=== PATIENT | male | born 1950 | race Caucasian/White ===

== ENCOUNTER 2019-05-07 09:07 | Emergency (ER) | payer MEDICARE, OTHER, SELFPAY ==
[2019-05-07 09:07] VITALS: BP 156/96; PULSE 61; RESP 17; TEMP 36.7; O2SAT 94; BMI 35.0
--- NOTE | 2019-05-07 09:23 | CT_ITS ---
STUDY: CT ABDOMEN AND PELVIS WITH CONTRAST REASON FOR EXAM: Male, 68 years old. Left lower quadrant pain x24 hours RADIATION DOSAGE (If Supplied By Facility): CTDIvol = ( 20.33 ) mGy, DLP = ( 1428.91 ) mGycm TECHNIQUE: Transaxial images were obtained from the dome of the diaphragm to the symphysis pubis without oral contrast. 100ML IV Isovue 300 was administered. Sagittal and coronal images were reconstructed. Individualized dose optimization techniques were used for this CT. COMPARISON: None. FINDINGS: There are chronic interstitial fibrotic changes of the lung bases. The visualized portions of the heart are within normal limits. Liver is unremarkable aside from a 1 cm cyst in the left lobe. Normal gallbladder and extrahepatic biliary system. Normal spleen. Normal pancreas. Normal bilateral adrenal glands. Normal right kidney. Left kidney shows hydronephrosis and hydroureter with a minimal amount of perinephric and periureteral inflammatory stranding. Findings due to 2 separate 2 mm stones in the distal left ureter best seen on axial images 112-114. There is a small hiatal hernia. Normal small intestine. Normal colon. There is non-visualization of the appendix. Normal abdominal aorta. Normal inferior vena cava. Normal retroperitoneum. Bladder is incompletely distended. There are prostatic calcifications. Normal abdominal wall. There are diffuse degenerative changes of the visualized lumbar spine, and pelvis. Replaced right hip joint free of complication CT/Abdomen/Pelvis W IV Cont ONLY IMPRESSION: There are 2 separate 2 mm calcifications in the distal left ureter likely responsible for left-sided hydronephrosis and hydroureter with perinephric and periureteral inflammatory stranding. Small hiatal hernia 1 similar left hepatic cyst Prostate calcifications Degenerative bony changes Electronically Signed: Cristóbal Vallejo MD at 10:48 EDT , Service support ,
[2019-05-07 09:32] LABS: Color, Urine Yellow (Yellow); Glucose, Dipstick Normal (Normal); Ketone-Dipstick 5 mg/dl (Negative); Leukocyte Esterase-Dipstick 25 /ul (Negative); Nitrite-Dipstick Negative (Negative); Occult Blood-Urine 250 /ul (Negative); Protein-Dipstick 30 mg/dl (Negative); Urine Bilirubin Dipstick Negative (Negative); Urine Clarity Clear (Clear); Urine Urobilinogen 1 mg/dl (Normal)
[2019-05-07 09:41] LABS: Absolute Lymphocyte Count 1.04 X10^3/uL (0.83-4.51); Absolute Neutrophil Count 7.2 X10^3/uL (2.0-7.7); Basophil# 0.04 X10^3/uL; Basophil% 0.5 % (0-1); Eosinophil# 0.05 X10^3/uL; Eosinophils% 0.6 % (0-5); Hematocrit 46.8 % (40-54); Hemoglobin 15.7 g/dL (13.0-16.5); Lymphocyte # 1.04 X10^3/ul (4.0); Lymphocyte % 11.7 % (19-41); Mean Corp Hgb Conc 33.5 g/dL (32-36); Mean Corpuscular Hgb 29.9 pg (27.0-32.0); Mean Corpuscular Volume 89.1 fL (80-94); Mean Platelet Vol. 11.5 fl (6.2-12.0); Monocyte# 0.55 X10^3/uL; Monocyte% 6.2 % (0-10); NRBC Flagged by Analyzer 0 % (0-5); Neutrophil # 7.18 X10^3/uL (2.7-7.7); Neutrophil % 80.8 % (47-70); Platelet Count 216 K/mm3 (150-450); RBC Distribution Width CV 12.6 % (11.6-14.6); RBC Distribution Width SD 41.2 fl (35.1-43.9); Red Blood Count 5.25 M/mm3 (4.6-6.2); White Blood Count 8.9 K/mm3 (4.4-11.0)
[2019-05-07 09:51] LABS: Anion Gap 8 (5-15); BUN 17 mg/dL (7-18); BUN/Creat Ratio 15.9 RATIO (10-20); Calcium,Total 9.1 mg/dL (8.5-10.1); Chloride 107 mmol/L (98-107); Creatinine, Serum 1.07 mg/dL (0.70-1.30); EST Glomerular Filtration Rate 73 mL/min (>60); Est Glom Filt Rate - Afr Amer 89 mL/min (>60); Estimated Creatinine Clearance 78.96 ml/min; Glucose 110 mg/dL (74-106); Potassium 4.4 mmol/L (3.5-5.1); Sodium Level 140 mmol/L (136-145)
[2019-05-07 09:55] LABS: Red Blood Cells-Urine 25-50 SEEN /hpf (0-5)
[2019-05-07 09:56] LABS: International Normalized Ratio 2.4; Prothrombin Time (Protime)PT. 25.8 SECONDS (11.7-14.9)
[2019-05-07 09:56] LABS: Bacteria 1+ /hpf (None Seen); Mucous, Urine 1+ /hpf (<or=2+); Squamous Epithelial Cells - UA 0-5 SEEN /hpf (0-5); White Blood Cells 0-5 SEEN /hpf (0-5)
--- NOTE | 2019-05-07 10:14 | ED.DCSUM_ITS ---
- ER Visit Summary Date of Service: 05/07/19 Chief Complaint: Left lower quadrant abdominal pain History of Present Illness: The patient is a 68 M who states that last evening he began to experience a low left lower quadrant abdominal pain. He notes urinary frequency and also sensation he needs to have frequent bowel movements. States only small amounts come. He has a history of kidney stones and states that this feels different. He has not had a history of diverticulitis. Has had no rectal bleeding or diarrhea. No fevers. Physical Examination: Afebrile vital signs stable Gen: Well-nourished well-developed Head: Normocephalic atraumatic Eyes: Perrl EOMI ENT: TMs clear no rhinorrhea moist mucous membranes Neck: Supple no lymphadenopathy no JVD nontender CVS: Regular rate rhythm no murmurs normal S1-S2 Respiratory: No distress clear to auscultation bilaterally chest nontender Abdomen: Soft nontender nondistended normal bowel sounds no masses Back: Nontender Extremity: Nontender no edema Skin: Normal color no rash Neuro: alert orientated ?3 CN II-XII intact normal strength sensation Psych: Normal affect normal mood Test Results: Urinalysis shows hematuria. CBC chemistries negative. INR 2.4. CT of the abdomen pelvis demonstrates a 3 mm distal ureteral stone with associated hydronephroureter. Emergency Department Course and Treatment: Toradol for pain with some wish to drive. I will write for Mor[place]arty and Zofran at home. Follow-up with urology if not improving return if worsening or concerns Impression: 1. Acute left distal ureterolithiasis 2. Hydronephroureter This note was generated with [employer] dictation software. It may contain incorrect words, spelling, and punctuation that were not noted in review of the chart prior to signing ED Disposition - Plan for ED Patient: Disposition: Home or Assisted Living Instructions: KIDNEY STONE w/ Colic Prescriptions: Hydrocodone Bitart/Apap 5-325 [Moriarty 5MG-325MG] 1 tab PO Q6H PRN PRN 3 Days #12 tab PRN Reason: Pain Prescription Printed Ondansetron [Zofran Odt] 4 mg PO Q8H PRN PRN #10 tab PRN Reason: Nausea Prescription Printed Referrals: Efrain Baca MD [Primary Care Provider] - As Needed Andry Coreas MD [STAFF PHYSICIAN] - (as needed for urology ) Additional Instructions: Your INR was 2.4 today
[2019-05-07] MEDS: Ketorolac 30 MG/ML Syringe IV (10:50)
[2019-05-07 11:20] VITALS: BP 136/79; PULSE 60; RESP 18; O2SAT 90
== END 2019-05-07 11:20 | disposition home or self-care (01) ==
PROVIDERS: Emergency Provider Emergency Medicine
DX: N13.2 Hydronephrosis with renal and ureteral calculous obstruction (principal); Z87.442 Personal history of urinary calculi; N40.0 Benign prostatic hyperplasia without lower urinary tract symptoms; Z86.718 Personal history of other venous thrombosis and embolism; Z79.01 Long term (current) use of anticoagulants
CPT/HCPCS: 74177; 80048; 81001; 85025; 85610; 96374; 99283; Q9967; A4216

== ENCOUNTER 2019-09-08 11:42 | Inpatient (IN) | payer MEDICARE, OTHER, SELFPAY ==
[2019-09-08] VITALS (10 sets, daily range): BP systolic 113–162; BP diastolic 75–94; PULSE 56–70; RESP 12–18; TEMP 36.4–37.1; O2SAT 95–100; BMI 36.5; BMI 35.9; BMI 36.0
--- NOTE | 2019-09-08 11:53 | EKG12_ITS ---
Test Reason : CP Blood Pressure : / mmHG Vent. Rate : 061 BPM Atrial Rate : 061 BPM P-R Int : 170 ms QRS Dur : 088 ms QT Int : 430 ms P-R-T Axes : 028 -11 004 degrees QTc Int : 432 ms Normal sinus rhythm Normal ECG Confirmed by GASPER QUINTANA MD ([id number]), map editor TIFFANIE MERCER ([id number]) on 09/10/2019 10:57:46 AM Referred By: Confirmed By:GASPER QUINTANA MD
[2019-09-08 12:00] LABS: Basophil# 0.05 X10^3/uL; Basophil% 0.7 % (0-1); Eosinophil# 0.42 X10^3/uL; Eosinophils% 5.9 % (0-5); Hematocrit 46.5 % (40-54); Hemoglobin 15.7 g/dL (13.0-16.5); Lymphocyte % 28.2 % (19-41); Mean Corp Hgb Conc 33.8 g/dL (32-36); Mean Corpuscular Hgb 29.6 pg (27.0-32.0); Mean Corpuscular Volume 87.7 fL (80-94); Mean Platelet Vol. 11.2 fl (6.2-12.0); Monocyte# 0.62 X10^3/uL; Monocyte% 8.8 % (0-10); NRBC Flagged by Analyzer 0 % (0-5); Neutrophil # 3.97 X10^3/uL (2.7-7.7); Neutrophil % 56.1 % (47-70); Platelet Count 231 K/mm3 (150-450); RBC Distribution Width CV 12.3 % (11.6-14.6); RBC Distribution Width SD 39.2 fl (35.1-43.9); White Blood Count 7.1 K/mm3 (4.4-11.0)
--- NOTE | 2019-09-08 12:00 | RAD_ITS ---
STUDY: X-RAY CHEST REASON FOR EXAM: Male, 69 years old. TECHNIQUE: COMPARISON: None. FINDINGS: The heart is not enlarged. The lung mason and costophrenic angles are clear. No pneumothorax or pleural effusion. There is mild tortuosity of the thoracic aorta. The trachea is in the midline. The visualized bony structures are intact. RAD/Chest 1 View (Portable) IMPRESSION: Negative chest for active disease. Electronically Signed: Willian Wright, at 12:20 EST Tel , Service support ,
[2019-09-08] MEDS: fentaNYL 100 MCG/2 ML Ampul 50 MCG IV ×2 (12:01→14:19)
[2019-09-08] MEDS: Aspirin 81 MG TAB.CHEW 324 MG PO (12:01)
[2019-09-08 12:08] LABS: International Normalized Ratio 2.5; Prothrombin Time (Protime)PT. 27.1 SECONDS (11.7-14.9)
[2019-09-08 12:12] LABS: Anion Gap 8 (5-15); BUN 16 mg/dL (7-18); BUN/Creat Ratio 18.1 RATIO (10-20); Calcium,Total 9.1 mg/dL (8.5-10.1); Chloride 107 mmol/L (98-107); Creatinine, Serum 0.88 mg/dL (0.70-1.30); EST Glomerular Filtration Rate 91 mL/min (>60); Est Glom Filt Rate - Afr Amer 110 mL/min (>60); Estimated Creatinine Clearance 94.71 ml/min; Glucose 91 mg/dL (74-106); Sodium Level 140 mmol/L (136-145)
--- NOTE | 2019-09-08 12:34 | CT_ITS ---
STUDY: CTA CHEST REASON FOR EXAM: Male, 69 years old. Chest pain and cough RADIATION DOSAGE (If Supplied By Facility): CTDIvol = ( 12.67 ) mGy, DLP = ( 567.16 ) mGycm TECHNIQUE: The examination was performed with the intravenous administration of IV 100mL Isovue-370 100. Post-processing of the angiographic images was performed, with multiplanar reformation and 3D reconstruction. Individualized dose optimization techniques were used for this CT. COMPARISON: CT abdomen and pelvis 05/07/2019. FINDINGS: Normal enhancement of the main pulmonary artery and right and left pulmonary arteries. Normal enhancement of the bilateral peripheral pulmonary arteries. There is no demonstrated pulmonary embolism. Normal pleura. Normal pulmonary parenchyma. No focal pulmonary consolidation. There is trace bibasilar atelectasis. Stable centrally calcified nodule in the posterior left lower lobe is consistent with benign nodule. There is small amount of mucus along the right trachea. There is trace atherosclerotic calcification of the aortic arch . There is no demonstrated aortic dissection. Normal heart and pericardium. Mild coronary artery calcification. No mediastinal, axillary or bulky hilar adenopathy. Normal visualized trachea and bronchi. Normal chest wall structures. There are degenerative changes of thoracic spine. Normal visualized upper abdomen. CT/CTA Chest W/WO Contrast IMPRESSION: No pulmonary embolism or arterial dissection. No focal pulmonary consolidation. Electronically Signed: Nima Mcintosh, at 14:30 EST Tel , Service support ,
--- NOTE | 2019-09-08 12:49 | ED.VISSUMM ---
- ER Visit Summary Date of Service: 09/08/19 Chief Complaint: Chest pain History of Present Illness: The patient is a 69 M with left-sided chest pain that started 4 days ago while he is at [employer]. It does not radiate. He never had this before. Worse when he is driving, specifically when he moves his arm. Seem to be better with [place], but he is now out. He has a cough and a hoarse voice last night, but no other respiratory symptoms. No other associated symptoms like lightheadedness, sweats, nausea, vomiting. Denies weakness or numbness in his arms. He does have a history of DVT and is therapeutic on Coumadin. Denies any history of aortic disease. Denies any history of heart disease. Denies diabetes, hypertension, hyperlipidemia, and smoking. Physical Examination: Afebrile and vital signs unremarkable. Patient alert and oriented. No acute distress. HEENT exam unremarkable. Heart regular. Lungs clear. Extremities nontender with good pulses. Skin appears normal. Test Results: EKG shows sinus rhythm at a rate of 61. No sign of acute ischemia or infarction pattern. Unchanged since his prior EKG. CBC and BMP normal. INR 2.5 and troponin 0.097. Chest x-ray normal. Emergency Department Course and Treatment: Patient was treated with aspirin and fentanyl while awaiting results. He was placed on the monitor. Work-up was unremarkable except his troponin was indeterminate at 0.097. His INR is therapeutic. After discussion with the patient, he does not normally have this pain. I suspect he could have a failure of his Coumadin therapy. I am also concerned for other etiologies that could cause a new left-sided chest pain including coronary disease. We will check a CTA and will reassess. Pain was a 2 out of 10 after treatment with aspirin and fentanyl. CTA was negative. Patient had recurrent pain and some pain in his left arm. He was treated with additional fentanyl. Repeat troponin is pending. Patient has a heart score of 4. Given his new symptoms and otherwise explain pain, will contact the hospitalist for further care. Treatment Plan: As above Disposition: Admission Impression: 1. Chest pain This note was generated with [employer] software. It may contain incorrect words, spelling, and punctuation that were not noted in review of the chart prior to signing ED Disposition - Plan for ED Patient: Referrals: Efrain Baca MD [Primary Care Provider] -
--- NOTE | 2019-09-08 14:55 | HP.PCM_ITS ---
Problem List (1) Chest pain Status: Acute (2) Deep venous thrombosis of distal lower extremity Status: Chronic Qualifiers: Chronicity: chronic Laterality: bilateral Qualified Code(s): I82.5Z3 - Chronic embolism and thrombosis of unspecified deep veins of distal lower extremity, bilateral History of Present Illness Date of Admission: 09/08/19 Chief Complaint: chest pain The patient is a 69 year old M presents with a four-day history of left-sided chest pain. Chest pain is constant not exacerbated nor alleviated by any par ticular factors. Has been ongoing and presented to the emergency room for evaluation. Patient an EKG that was unremarkable troponin that came back at 0.097. Patient did undergo a CT angiogram of the chest given his history of DVTs which was negative for any pulmonary embolism nor any other acute process. In the emergency room, patient received aspirin, fentanyl. Chest pain is better but still ongoing. Patient is never had chest pain like this before. [] Past Medical History Past Medical History (Chronic Problems): Chronic Problems Deep venous thrombosis of distal lower extremity (Chronic) Medical History: Medical History (Last Updated 09/08/19 @ 15:00 by Phillip Anderson DO) BPH (benign prostatic hyperplasia) N40.0 DVT (deep venous thrombosis) I82.409 Allergies No Known Allergies Allergy (Verified 09/08/19 11:46) Home Medications: Ambulatory Orders Medication Instructions Recorded Warfarin [Coumadin] 5 mg PO SUMOWETHFRSA 06/06/17 Tamsulosin HCl [Flomax] 0.4 mg PO DAILY@1730 #30 capsule 06/25/17 Warfarin [Coumadin ([facility])] 7.5 mg PO TU 05/07/19 Surgical History: Surgical History (Last Updated 09/08/19 @ 15:01 by Phillip Anderson DO) History of right hip replacement Onset Date: 06/23/17 Z96.641 S/P IVC filter Onset Date: 06/11/17 Z95.828 Surgical History: - - Removal of a lipoma in left chest region Smoking Status: Never smoker - *Family History Maternal History Items: - - no CAD Review of Systems Constitutional: Denies: Anorexia, Chills, Fever Eyes: Denies: Blurred vision, Double vision HEENT: Denies: Head Aches, Sinus Congestion, Sinus Drainage Cardiovascular: Reports: Chest Pain. Denies: Edema Respiratory: Denies: Cough, Shortness of breath at rest, Sputum production Gastrointestinal: Denies: Abdominal Pain, Nausea, Vomiting Genitourinary: Denies: Dysuria Musculoskeletal: Denies: Joint Pain, Joint Tenderness Skin: Reports: Dryness Neurological: Denies: Numbness, Tingling, Focal weakness Psychiatric: Denies: Anxiety, Depression Hematologic/ Lymphatic: Reports: Hx of blood clot. Denies: Easy Bruising, Easy Bleeding Comment: All review systems are otherwise negative except for as mentioned above and in HPI. VTE Information - Inpt Only VTE Present on Admission: No VTE Mechan Device Prophylaxis: None VTE Pharm Prophylaxis ordered?: No Reason prophylaxis not ordered:: Procedure Not Indicated Patient Problems: Active and Suspected Problems Chest pain (Acute) - Physical Exam Vitals/I&O's: Vital Signs Temp Pulse Resp BP Pulse Ox 36.4 C L 60 18 135/81 H 99 09/08/19 11:47 09/08/19 14:23 09/08/19 14:23 09/08/19 14:23 09/08/19 14:23 Oxygen Flow Rate (L/min) 2 Oxygen Delivery Method Nasal Cannula Weight: 129.1 kg Body Mass Index (BMI) 36.5 General: Alert, Cooperative, No apparent distress HEENT: Atraumatic, Normocephalic Oral: Moist Mucosa, No Gingival or Mucosal Lesions/ Ulcerations Neck: No Nodes, Trachea Midline Lungs: Clear to auscultation, Normal air movement, No rhonchi, No wheeze, No rales Cardiovascular: Regular rate, Regular Rhythm, Normal S1, Normal S2, No murmurs Abdomen: Bowel Sounds Present, Soft, Non Tender, Non-Distended, No Hepato- splenomegaly Extremities: No edema, No Calf Tenderness Skin: No rashes, No breakdown Musculoskeletal: No Tenderness to Palpation of Joints or Extremities, No Muscle Wasting Neurological: Muscle tone normal, - - No clonus Psych/Mental Status: Normal Affect, Appropriate Laboratory Results 09/08/19 11:45: WBC 7.1, RBC 5.30, Hgb 15.7, Hct 46.5, MCV 87.7, MCH 29.6, MCHC 33.8, RDW Std Deviation 39.2, RDW Coeff of Gregorio 12.3, Plt Count 231, MPV 11.2, Immature Gran % (Auto) 0.300, Neut % (Auto) 56.1, Lymph % (Auto) 28.2, [place] % (Auto) 8.8, Eos % (Auto) 5.9 H, Baso % (Auto) 0.7, Absolute Neuts (auto) 4.0, Absolute Lymphs (auto) 2.00, Nucleated RBC % 0 09/08/19 11:45: PT 27.1 H, INR 2.5 09/08/19 11:45: Sodium 140, Potassium 4.0, Chloride 107, Carbon Dioxide 25.0, Anion Gap 8, BUN 16, Creatinine 0.88, Estim Creat Clear Calc 94.71, Est GFR (MDRD) Af Amer 110, Est GFR (MDRD) Non-Af 91, BUN/Creatinine Ratio 18.1, Glucose 91, Calcium 9.1, Troponin I 0.097 H 09/08/19 14:45: Troponin I Pending EKG reviewed and showed normal sinus rhythm without any acute changes. Chest x-ray personally reviewed and showed no pulmonary edema nor infiltrate. CTA of the chest personally reviewed and showed no pulmonary embolism, no infiltrate, no pulmonary edema. Clinical Impression(s) from Imaging Studies Chest X-Ray 09/08/19 12:00 IMPRESSION: Negative chest for active disease. Electronically Signed: Willian Wright, at 12:20 EST Tel , Service support , Chest CTA 09/08/19 12:34 IMPRESSION: No pulmonary embolism or arterial dissection. No focal pulmonary consolidation. Electronically Signed: Nima Mcintosh, at 14:30 EST Tel , Service support , Assessment/Plan All Active Problems Chest pain (Acute) 1. Chest pain * Atypical but concerning for cardiac given the slight elevated troponin * No pulmonary embolism * Discussed with Dr. Tran, of cardiology. Explained the case and he will evaluate the patient and have the chemistry quality control technician evaluate him to see if there is any other acute issues such as a pericardial effusion. * Patient received aspirin in the emergency room * Patient is already anticoagulated on warfarin with an INR of 2.5 * Further decisions will be per cardiology's evaluation 2. History of DVT * CTA negative for PE * Will hold the warfarin for now depending on what further needs to be done in regards to this patient's case * Monitor INR 3. VTE prophylaxis: Low risk as patient is already anticoagulated. Discussed with the patient's daughter, Dr. Crisostomo. Code Visit OBSV E&M: 02515 Initial observation care L3
--- NOTE | 2019-09-08 15:38 | PCM.CONS.C ---
Problem List (1) Chest pain Status: Acute Reason for Consult Date of Consultation: 09/08/19 Reason for Consultation: Atypical chest pain, indeterminate troponin History of Present Illness: The patient is a 69 year old M, father of Dr. Radha Crisostomo, nondiabetic, lifelong non-smoker, nonhypertensive, unknown cholesterol medications, no previous cardiac history, currently on Coumadin therapy for repetitive lower extremity DVTs. Patient is never had a heart catheterization, TIA, CVA, but does have a positive family history of coronary disease. Patient was in normal health until Friday when he was at [employer] and he developed new onset atypical midsternal chest pain which was nonradiating with no associated shortness of breath, nausea, vomiting, diaphoresis, fevers or chills. The pain was described as dull and heavy, in the mid part of his sternum, rated a 5 out of 10 in severity. It appears that the patient's pain worsened when he was driving a car and turning the steering wheel. Patient had some leftover Stuyvesant from a previous kidney stone, and took this at home with some minimal relief. According to the patient the pain is been constant 05/05 since Friday, with only mild improvement with Stuyvesant. When his symptoms did not improve, at the encouragement of his daughter, he came to the emergency room. An EKG performed showed normal sinus rhythm, incomplete right bundle branch block, no acute changes noted. His initial troponin was 0.09. A expedited bedside echo in the emergency room demonstrated relatively intact LV function, normal RV size and function, no pericardial effusion, final results are pending. A chest x-ray was performed which demonstrated no overt findings. A CTA of the chest was performed which was negative for aortic dissection, pulmonary embolism, or infiltrates. Patient's pain is nonreproducible with palpation over his chest, but appears to be worse when he moves his arm medially over his chest. He has no pleuritic component. He does complain of some mild coughing with mild sputum production, but no fevers, chills or infectious processes.] Past Medical History Allergies/Adverse Reactions: Allergies No Known Allergies Allergy (Verified 09/08/19 11:46) Home Medications: Ambulatory Orders Medication Instructions Recorded Warfarin [Coumadin] 5 mg PO SUMOWETHFRSA 06/06/17 Tamsulosin HCl [Flomax] 0.4 mg PO DAILY@1730 #30 capsule 06/25/17 Warfarin [Coumadin ([facility])] 7.5 mg PO TU 05/07/19 Past Medical History (Chronic Problems): Chronic Problems (Last Updated 09/08/19 @ 15:00 by Phillip Anderson DO) Deep venous thrombosis of distal lower extremity (Chronic) Surgical History: - - Removal of a lipoma in left chest region - *Family History Maternal History Items: - - no CAD Smoking Status: Never smoker Review of Systems - Review of Systems General: Denies: Fever, Night Sweats, Fatigue Cardiovascular: Reports: Chest Discomfort, Chest Discomfort at Rest, Chest Tightness. Denies: Shortness of Breath, Orthopnea, PND, Peripheral Edema, Palpitations, Lightheadedness, Dizziness, Near Syncope, Syncope Respiratory: Denies: Cough, Sputum Production, Hemoptysis Gastrointestinal: Denies: Hematemesis, Hematochezia, Melena Genitourinary: Denies: Dysuria, Hematuria Skin: Denies: Rash Subjectve: Patient resting comfortably, no acute distress. Patient's daughter Dr. Radha Crisostomo at the bedside per Objective: Vital Signs Temp Pulse Resp BP Pulse Ox 97.6 F L 64 16 113/75 99 09/08/19 11:47 09/08/19 15:00 09/08/19 15:00 09/08/19 15:00 09/08/19 15:00 Oxygen Flow Rate (L/min) 2 Oxygen Delivery Method Nasal Cannula Weight: 284 lb 9.868 oz Body Mass Index (BMI) 36.5 General: Awake, Alert, Oriented x 3 HEENT: PERRL, EOMI, Sclera Non Icteric Neck: Supple, Good ROM, No Lymph Node Enlargement Lungs: Clear to auscultation Cardiovascular: Regular Rhythm, Normal S1, Normal S2, No Murmurs, No Rubs, No Gallops Vascular: No Carotid Bruits, Normal Femoral Pulses, Normal Radial Pulses, Normal Dorsalis Pedal Pulse, Normal Posterior Tibial Pulses Abdomen: Bowel Sounds Present, Soft, Non Tender, No HSM, No Organomegaly Extremities: No Cyanosis, No Clubbing, No edema Neurological: No Focal Motor or Sensory Deficit 09/08/19 11:45: WBC 7.1, RBC 5.30, Hgb 15.7, Hct 46.5, MCV 87.7, MCH 29.6, MCHC 33.8, Plt Count 231, MPV 11.2, Immature Gran % (Auto) 0.300, Neut % (Auto) 56.1, Lymph % (Auto) 28.2, [place] % (Auto) 8.8, Eos % (Auto) 5.9 H, Baso % (Auto) 0.7, Absolute Neuts (auto) 4.0, Nucleated RBC % 0 09/08/19 11:45: PT 27.1 H, INR 2.5 09/08/19 11:45: Sodium 140, Potassium 4.0, Chloride 107, Carbon Dioxide 25.0, Anion Gap 8, BUN 16, Creatinine 0.88, Est GFR (MDRD) Af Amer 110, Est GFR (MDRD) Non-Af 91, BUN/Creatinine Ratio 18.1, Glucose 91, Calcium 9.1, Troponin I 0.097 H 09/08/19 14:45: Troponin I 0.108 H Rhythm: EKG: As above ECHO: Pending Stress Test: Cardiac Cath: PCI: CT Surgery: Holter monitor: EPS: PPM: CXR: Chest CT Scan: Assessment/Plan 1. Chest pain: Patient is a 69-year-old non-smoker, nondiabetic, no previous known coronary disease, positive family history of coronary artery disease, currently on Coumadin therapy which is therapeutic for recurrent lower extremity DVTs. Patient presents with new onset constant, dull chest pain since Friday. The patient was doing a copious amount of landscape work in his yard by raking his beds late last week, but had no chest pain until Friday. His EKG shows no acute changes, and his initial troponin 0 0.09. Echocardiogram at the bedside shows relatively intact LV function, final results are pending. No pericardial effusion noted. At this point given the patient's age, risk factors, family history, abnormal troponin, and new onset chest pain despite Coumadin I recommend the patient be admitted to the telemetry floor for rule out myocardial infarction protocol with troponin series x3. In addition I would recommend holding his Coumadin therapy in anticipation that he may require diagnostic coronary angiogram. Recommend treating him with baby aspirin 81 mg p.o. daily for possible acute coronary syndrome. Once we know where his troponins have defined themselves, we will then decide on either direct coronary angiography once his INR is less than 1.6, or stress testing with a treadmill echocardiogram to evaluate for possible ischemia. If the patient will require diagnostic coronary angiogram he will need to be loaded with Plavix 300 mg x 1 followed by 75 mg a day in conjunction with his baby aspirin 81 mg p.o. daily. In addition I would recommend the patient undergo a d-dimer as well as a high-sensitivity CRP to evaluate for possible pericarditis or pleuritis. 2. DVT: The patient is on chronic Coumadin therapy and his INR is therapeutic at 2.5 today. Again recommend holding his Coumadin in anticipation that he may require a diagnostic coronary angiogram. 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 While he is off Coumadin therapy we may want to take the opportunity to obtain a hypercoagulable work-up panel including Antithrombin III, factor V Leiden, protein C, protein S, and lupus anticoagulant factors. 3. Hyperlipidemia: Recommend obtaining a fasting lipid profile as part of his work for coronary atherosclerotic disease. 4. Discussed with the patient's daughter, and agree with admission at this time. Thank you very much for the opportunity to participate in the cardiac care of your patient. Consultation time took place between 4 PM and 4:48 PM. Code Visit Inpatient E&M: 39902 Init Hosp L2
--- NOTE | 2019-09-08 15:46 | ECHOCS_ITS ---
Reason For Study: CP Procedure This was a 2D Doppler, Color Flow transthoracic echocardiogram. The study was technically difficult. Contrast injection was performed. Exam performed portable in ED. Left Ventricle Normal size and thickness. The estimated ejection fraction is 65 %. Stage 1 diastolic dysfunction. No regional wall motion abnormalities noted. Right Ventricle Normal size and thickness. Normal systolic function. Atria The left atrium is mildly enlarged. Normal right atrium. Normal atrial septum. Mitral Valve The mitral valve is structurally normal. No prolapse or stenosis seen. Mild (1+) eccentric mitral valve insufficiency. Tricuspid Valve Normal tricuspid valve. Trivial tricuspid valve insufficiency. Right ventricular systolic pressure estimated to be 32 mmHg. Aortic Valve Normal aortic valve. Trisinus/trileaflet aortic valve. Pulmonic Valve Normal pulmonic valve. Great Vessels Normal aortic root. Normal arch. Normal inferior vena cava. Inferior vena cava collapse with sniff. Pericardium/Pleural No pericardial effusion. Medication Diluted definity 2ml given slow IV push to enhance endocardial definition. MMode/2D Measurements & Calculations LVIDd: 5.3 cm IVSd: 1.3 cm Ao root diam: 4.0 cm LVIDs: 3.1 cm LVPWd: 0.99 cm LA dimension: 4.2 cm FS: 41.2 % LAV(MOD-bp): 76.3 ml LA A4 area: 22.5 cm2 RA A4 area: 17.8 cm2 LAV(MOD-bp) Indexed: 30.7 ml/m2 LAV(MOD-sp2): 86.2 ml LAV(MOD-sp4): 65.3 ml Time Measurements MV dec time: 0.26 sec Doppler Measurements & Calculations MV E max lamin: 66.8 cm/sec Lat Peak E' Lamin: 7.5 cm/sec Med Peak E' Lamin: 7.2 cm/sec MV A max lamin: 77.4 cm/sec E/E' lat: 8.9 E/E' med: 9.2 MV E/A: 0.86 MV V2 max: 80.2 cm/sec MV P1/2t max lamin: 69.2 cm/sec Ao V2 max: 115.6 cm/sec MV max P.6 mmHg MV P1/2t: 129.9 msec Ao max P.3 mmHg MV V2 mean: 43.2 cm/sec MV dec slope: 156.1 cm/sec2 Ao V2 mean: 74.6 cm/sec MV mean P.87 mmHg Ao mean P.6 mmHg MV V2 VTI: 29.7 cm MVA(P1/2t): 1.7 cm2 Ao V2 VTI: 23.1 cm LV V1 max: 112.7 cm/sec PA V2 max: 115.6 cm/sec TR max lamin: 245.0 cm/sec LV V1 max P.1 mmHg TR max P.0 mmHg LV V1 mean P.0 mmHg LV V1 mean: 64.0 cm/sec LV V1 VTI: 22.7 cm Interpretation Summary The estimated ejection fraction is 65 %. Stage 1 diastolic dysfunction. The left atrium is mildly enlarged. Mild (1+) eccentric mitral valve insufficiency. Trivial tricuspid valve insufficiency. Right ventricular systolic pressure estimated to be 32 mmHg. The study was technically difficult. Contrast injection was performed. There is no comparison study available. Ordering Physician: Jimmy Tran Referring Physician: Efrain Baca Performed By: Raz Lino RCS
[2019-09-08 16:45] LABS: CRP, High Sensitivity Cardiac 2.54 mg/L; Cholesterol 236 mg/dL (200); High Density Lipoprotein 49 mg/dL; Triglycerides 311 mg/dL; Very Low Density Lipoprotein 62 mg/dL (5-40)
[2019-09-08] MEDS: Tamsulosin HCl 0.4 MG Capsule PO (17:03)
[2019-09-08] MEDS: Clopidogrel Bisulfate 300 MG Tablet PO (17:03)
[2019-09-08 17:08] LABS: D-Dimer Quantitative (DVT/PE) 0.33 FEU/ug/m (0.27-0.49)
[2019-09-08 17:20] LABS: Erythrocyte Sedimentation Rate 18 mm/hr (0-20)
--- NOTE | 2019-09-08 17:49 | EKG12_ITS ---
Test Reason : ADMISSION Blood Pressure : / mmHG Vent. Rate : 058 BPM Atrial Rate : 058 BPM P-R Int : 172 ms QRS Dur : 096 ms QT Int : 434 ms P-R-T Axes : 029 -08 002 degrees QTc Int : 426 ms Sinus bradycardia with Premature supraventricular complexes Otherwise normal ECG When compared with ECG of 08-SEP-2019 12:00, MANUAL COMPARISON REQUIRED, DATA IS UNCONFIRMED Confirmed by LILIAN KHOURY, GASPER ([id number]), graphic editor TIFFANIE MERCER ([id number]) on 09/13/2019 12:03:02 PM Referred By: SHANTI Confirmed By:GASPER QUINTANA MD
[2019-09-08] MEDS: oxyCODONE 5 MG Tablet PO (23:07)
[2019-09-09] VITALS (9 sets, daily range): BP systolic 117–132; BP diastolic 69–75; PULSE 52–63; RESP 16; TEMP 36.7–37.2; O2SAT 94–97
[2019-09-09 06:22] LABS: International Normalized Ratio 2.2; Prothrombin Time (Protime)PT. 24.8 SECONDS (11.7-14.9)
[2019-09-09 06:50] LABS: Cholesterol 220 mg/dL (200); High Density Lipoprotein 51 mg/dL; Triglycerides 164 mg/dL; Very Low Density Lipoprotein 33 mg/dL (5-40)
--- NOTE | 2019-09-09 08:37 | PN.CARD_ITS ---
Subjectve: Patient seen and evaluated. Appears to be doing better this morning. Only occasional mild chest pressure Objective: Vital Signs Temp Pulse Resp BP Pulse Ox 98.9 F 60 16 126/71 H 97 09/09/19 03:50 09/09/19 07:01 09/09/19 03:50 09/09/19 03:50 09/09/19 03:50 Oxygen Flow Rate (L/min) 2 Oxygen Delivery Method Room Air Weight: 280 lb 3.2 oz Body Mass Index (BMI) 35.9 Intake and Output for Last 24 Hours 09/07/19 09/08/19 09/09/19 23:59 23:59 23:59 Intake Total 490 / 490 300 / 300 Balance 490 / 490 300 / 300 General: Awake, Alert, Oriented x 3 HEENT: PERRL, EOMI, Sclera Non Icteric Neck: Supple, Good ROM, No Lymph Node Enlargement Lungs: Clear to auscultation Cardiovascular: Regular Rhythm, Normal S1, Normal S2, No Murmurs, No Rubs, No Gallops Vascular: No Carotid Bruits, Normal Femoral Pulses, Normal Radial Pulses, Normal Dorsalis Pedal Pulse, Normal Posterior Tibial Pulses Abdomen: Bowel Sounds Present, Soft, Non Tender, No HSM, No Organomegaly Extremities: No Cyanosis, No Clubbing, No edema Musculoskeletal: No Erythema Skin: No Rashes Lymphatic: No Lymph Node Enlargement Neurological: No Focal Motor or Sensory Deficit Psych/Mental Status: Appropriate 09/08/19 11:45: WBC 7.1, RBC 5.30, Hgb 15.7, Hct 46.5, MCV 87.7, MCH 29.6, MCHC 33.8, Plt Count 231, MPV 11.2, Immature Gran % (Auto) 0.300, Neut % (Auto) 56.1, Lymph % (Auto) 28.2, [place] % (Auto) 8.8, Eos % (Auto) 5.9 H, Baso % (Auto) 0.7, Absolute Neuts (auto) 4.0, Nucleated RBC % 0 09/08/19 11:45: PT 27.1 H, INR 2.5 09/08/19 11:45: Sodium 140, Potassium 4.0, Chloride 107, Carbon Dioxide 25.0, Anion Gap 8, BUN 16, Creatinine 0.88, Est GFR (MDRD) Af Amer 110, Est GFR (MDRD) Non-Af 91, BUN/Creatinine Ratio 18.1, Glucose 91, Calcium 9.1, Troponin I 0.097 H 09/08/19 11:45: D-Dimer Quant (PE/DVT) 0.33 09/08/19 11:45: Triglycerides 311 H, Cholesterol 236 H, LDL Cholesterol 125, VLDL Cholesterol 62 H, HDL Cholesterol 49 09/08/19 14:45: Troponin I 0.108 H 09/08/19 18:10: Troponin I 0.102 H 09/09/19 05:50: PT 24.8 H, INR 2.2 09/09/19 05:50: Triglycerides 164, Cholesterol 220 H, LDL Cholesterol 136 H, VLDL Cholesterol 33, HDL Cholesterol 51 Rhythm: EKG: ECHO: Stress Test: Cardiac Cath: PCI: CT Surgery: Holter monitor: EPS: PPM: CXR: Chest CT Scan: Medical Necessity - Tobacco Use Smoking Status: Never smoker Tobacco Use: Non-smoker Assessment/Plan 1. Chest pain: Patient presents with chest pain and features suggestive of angina. His troponins are minimally abnormal. He has no EKG changes. Recommendation at this time will be to proceed with a cardiac catheterization when his INR is therapeutic. Risk benefits and alternatives been explained to him he understands and agrees to proceed. * Will be tentatively scheduled for Friday 2. DVT: The patient is on chronic Coumadin therapy and his INR is therapeutic at 2.5 today. Again recommend holding his Coumadin in anticipation that he may require a diagnostic coronary angiogram. 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 While he is off Coumadin therapy we may want to take the opportunity to obtain a hypercoagulable work-up panel including Antithrombin III, factor V Leiden, protein C, protein S, and lupus anticoagulant factors. 3. Hyperlipidemia: Would recommend starting him on high intensity statin. Thank you for allowing me to participate in the care of your patient. Please don't hesitate to call if any issues arise
[2019-09-09] MEDS: Clopidogrel Bisulfate 75 MG Tablet PO (09:20)
[2019-09-09] MEDS: Aspirin E.C. 81 MG Tablet PO (09:20)
[2019-09-09] MEDS: 0.9% Saline Lock 10 ML Syringe IV (09:20)
[2019-09-09] MEDS: Isosorbide Mononitrate 30 MG Tablet PO (09:20)
--- NOTE | 2019-09-09 12:12 | PCM.PROGNOTE ---
Patient Problems: Active and Suspected Problems (Last Updated 09/08/19 @ 15:00 by Phillip Anderson DO) Chest pain (Acute) Subjective: The patient is a 69-year-old male with a past medical history of DVT, chronic anticoagulation with warfarin and BPH who presented to the emergency department at [facility] on 09/08/2019 complaining of a 4-day history of left chest pain. CTA was negative for pulmonary embolism. EKG showed no ST segment elevation. The initial troponin was elevated at 0.097. He was given aspirin in the emergency department and admitted to a monitored bed on PCU. Warfarin was held suspecting he may need a cardiac catheterization. He was seen by Dr. Patterson on 09/09/2019 and will tentatively be scheduled for cardiac catheterization on 09/10/2019. He was loaded with Plavix on 09/08/2019 and is currently receiving 75 mg p.o. daily. All events of the past 24 hours of been reviewed. Afebrile Vital signs stable He is maintaining appropriate oxygen saturation on room air. All lab was personally reviewed. Coumadin is on hold and his INR today is 2.2. ESR was 18. Troponin peaked at 0.108 and then started to decline. Fasting lipid profile shows triglycerides of 164, total cholesterol of 220, LDL of 136 and an HDL of 51. Per Dr. Patterson's consult today he recommends high intensity statin. He has been prescribed atorvastatin [address] Patterson. Echocardiogram showed a ejection fraction of 65% with stage I diastolic dysfunction. The left atrium is mildly enlarged and he has +1 eccentric mitral valve insufficiency and trivial TR. The right ventricular systolic pressure was estimated to be 32. He is still having some chest discomfort....it is not associated with exertion. It increases if he bends forward. Denies shortness of breath, palpitations. Telemetry shows normal sinus rhythm with occasional PAC and no ventricular ectopy. - Physical Exam Vitals/I&O's: Vital Signs Temp Pulse Resp BP Pulse Ox 98.0 F 63 16 132/75 H 94 09/09/19 09:15 09/09/19 09:15 09/09/19 09:15 09/09/19 09:15 09/09/19 09:15 Oxygen Flow Rate (L/min) 2 Oxygen Delivery Method Room Air Weight: 280 lb 3.2 oz Body Mass Index (BMI) 35.9 Intake and Output for Last 24 Hours 09/07/19 09/08/19 09/09/19 23:59 23:59 23:59 Intake Total 490 / 490 660 / 660 Balance 490 / 490 660 / 660 General: Alert, Oriented x3, Cooperative, No apparent distress, Well developed, Well nourished HEENT: Atraumatic, PERRLA, EOMI, Normocephalic Oral: Moist Mucosa Neck: Supple, No JVD, Negative Carotid Bruits, Trachea Midline Lungs: Clear to auscultation Cardiovascular: Regular rate, Regular Rhythm, Normal S1, Normal S2, No murmurs, No rub noted, No Gallop Abdomen: Bowel Sounds Present, Soft, Non Tender, Non-Distended, Obese Extremities: No clubbing, No cyanosis, No edema, No Calf Tenderness, Peripheral Pulses Normal Neurological: Cranial nerves II-XII grossly intact, Neuro grossly intact Psych/Mental Status: Normal Affect, Appropriate Laboratory Results 09/08/19 11:45: Sodium 140, Potassium 4.0, Chloride 107, Carbon Dioxide 25.0, Anion Gap 8, BUN 16, Creatinine 0.88, Estim Creat Clear Calc 94.71, Est GFR (MDRD) Af Amer 110, Est GFR (MDRD) Non-Af 91, BUN/Creatinine Ratio 18.1, Glucose 91, Calcium 9.1, Troponin I 0.097 H 09/08/19 11:45: D-Dimer Quant (PE/DVT) 0.33 09/08/19 11:45: C-React Prot High Sens 2.54, Triglycerides 311 H, Cholesterol 236 H, LDL Cholesterol 125, VLDL Cholesterol 62 H, HDL Cholesterol 49 09/08/19 11:45: ESR 18 09/08/19 14:45: Troponin I 0.108 H 09/08/19 18:10: Troponin I 0.102 H 09/09/19 05:50: PT 24.8 H, INR 2.2 09/09/19 05:50: Triglycerides 164, Cholesterol 220 H, LDL Cholesterol 136 H, VLDL Cholesterol 33, HDL Cholesterol 51 Current Medications Acetaminophen (Tylenol) 650 mg PO Q6H PRN PRN PRN Reason: Pain Score 1-3/Temp > 100.7 F Aspirin (Ecotrin) 81 mg PO DAILY@0800 ADAL[facility]O Last Admin: 09/09/19 09:20 Dose: 81 mg Documented by: Atorvastatin Calcium (Lipitor) 40 mg PO QHS [facility] Clopidogrel Bisulfate (Plavix) 75 mg PO DAILY [facility] Last Admin: 09/09/19 09:20 Dose: 75 mg Documented by: Sodium Chloride () 1,000 mls @ 15 mls/hr IV .Q48H [facility] Isosorbide Mononitrate (Imdur) 30 mg PO DAILY [facility] Last Admin: 09/09/19 09:20 Dose: 30 mg Documented by: Melatonin (Melatonin) 3 mg PO QHS PRN PRN PRN Reason: INSOMNIA Ondansetron HCl (Zofran) 4 mg IV Q8H PRN PRN PRN Reason: NAUSEA/VOMITING Oxycodone HCl (Oxyir) 5 mg PO Q4H PRN PRN PRN Reason: Pain Score 4-5/10 Last Admin: 09/08/19 23:07 Dose: 5 mg Documented by: Oxycodone HCl (Oxyir) 10 mg PO Q4H PRN PRN PRN Reason: Pain Score 6-10/10 Sodium Chloride () 10 - 40 ml IV UD PRN PRN Reason: SALINE FLUSH Last Admin: 09/09/19 09:20 Dose: 10 ml Documented by: Tamsulosin HCl (Flomax) 0.4 mg PO DAILY@1730 [facility] Last Admin: 09/08/19 17:03 Dose: 0.4 mg Documented by: Medical Necessity - Tobacco Use Smoking Status: Never smoker Tobacco Use: Non-smoker Assessment/Plan All Active Problems (Last Updated 09/08/19 @ 15:00 by Phillip Anderson DO) Chest pain (Acute) Impressions 1. Atypical chest pain with mildly elevated troponin in a 69-year-old male with a positive family history of coronary artery disease, and dyslipidemia. Scheduled for cardiac catheterization on 09/10/2019. Has been loaded with Plavix 300 mg and started on 75 mg p.o. daily. Also on aspirin 81 mg p.o. daily. He has been started on a medium intensity statin, Lipitor 40 mg p.o. nightly, and a nitrate by Dr. Patterson. 2. History of DVT and pulmonary embolus on chronic anticoagulation with warfarin. INR is still within the therapeutic window which would invalidate hypercoagulable work-up. Will need warfarin at discharge. 3. BPH - continue tamsulosin Code Visit Inpatient E&M: 77833 Subs Hosp L1
[2019-09-09] MEDS: Acetaminophen 325 MG Tablet 650 MG PO (15:10)
[2019-09-09] MEDS: Tamsulosin HCl 0.4 MG Capsule PO (17:39)
[2019-09-09] MEDS: oxyCODONE 5 MG Tablet PO (20:22)
[2019-09-09] MEDS: Zolpidem Tartrate 5 MG Tablet PO (21:59)
[2019-09-09] MEDS: Atorvastatin Calcium 40 MG Tablet PO (22:00)
[2019-09-09] MEDS: Phytonadione (Vit K1) 5 MG TABLET 2.5 MG PO (22:00)
[2019-09-10] VITALS (15 sets, daily range): BP systolic 108–155; BP diastolic 61–84; PULSE 52–99; RESP 14–18; TEMP 36.7–36.9; O2SAT 93–99
[2019-09-10 05:14] LABS: International Normalized Ratio 1.7; Prothrombin Time (Protime)PT. 19.6 SECONDS (11.7-14.9)
--- NOTE | 2019-09-10 05:14 | EKG12_ITS ---
Test Reason : AM EKG Blood Pressure : / mmHG Vent. Rate : 057 BPM Atrial Rate : 057 BPM P-R Int : 176 ms QRS Dur : 094 ms QT Int : 432 ms P-R-T Axes : 016 -06 -03 degrees QTc Int : 420 ms Sinus bradycardia with Premature atrial complexes Otherwise normal ECG When compared with ECG of 08-SEP-2019 15:52, MANUAL COMPARISON REQUIRED, DATA IS UNCONFIRMED Confirmed by LILIAN KHOURY, GASPER ([id number]), editor news TIFFANIE MERCER ([id number]) on 09/13/2019 12:01:37 PM Referred By: SHANTI Confirmed By:GASPER QUINTANA MD
[2019-09-10] MEDS: Aspirin E.C. 81 MG Tablet PO (05:56)
[2019-09-10] MEDS: Clopidogrel Bisulfate 75 MG Tablet PO (05:56)
[2019-09-10] MEDS: Isosorbide Mononitrate 30 MG Tablet PO (05:56)
[2019-09-10] MEDS: 0.9% Normal Saline 1,000 ML 15 ML IV (06:43)
--- NOTE | 2019-09-10 07:30 | NURSING ---
Report called to CARLEE Lopez in [facility]
--- NOTE | 2019-09-10 08:21 | CL.D_ITS ---
Patient Name: ADELFO DENG Study Date: 09/10/2019 Performing: Jimmy Tran MD Ht: 74.01 inches 188 cm : 1950 Wt: 279.99 lbs 127 kg Age: 69 Gender: male BSA: 2.51 PROCEDURE(S) PERFORMED DP45-ZWV/COR/LV CLINICAL PROFILE AND INDICATIONS Patient presents with NSTEMI for urgent cardiac cath Indications: New Onset Angina <= 2 months, Worsening Angina, Suspected CAD Heart Failure: None Stress/Imaging Stress/Image Study Performed: No Angina Classification Anginal Classification w/in 2 Weeks: CCS IV CAD Presentations: Symptom unlikely to be ischemic. Non-STEMI. Symptom onset Date/Time: 9 Time Not Available Comorbidities/Risk Factors: Hypertension Dyslipidemia CONCLUSIONS Non obstructive coronary arteries Perserved Left Ventricular systolic function with normal EDP RECOMMENDATIONS Management as per referring Software Security Architect D/c plavix, restart coumadin, hypercoagulable w/u. Manual sheath removal. Dr. Judd notified of results and plan. F/u with Dr Tran DESCRIPTION OF PROCEDURE The patient arrived to the procedure lab. The risks and benefits of the procedure as well as a full d escription of our services here and current unavailability of surgical backup were fully explained to the patient and/or their significant other prior to the catheterization. The Timeout was completed, verifying the correct patient and procedure. The patient's procedural site was prepped and draped in the usual fashion. Local anesthetic was given subcutaneously to right groin region with Lidocaine 2%. Using a modified Seldinger technique, arterial access was obtained via the right femoral artery, a 4 Fr sheath was inserted Left Coronary Artery selective angiography was performed in multiple views us ing a 4 Fr. JL5 catheter. Right Coronary Artery selective angiography was then performed in multiple views using a 4 Fr. 3DRC catheter. Left Ventriculography was performed in IRVIN projection using a 4 Fr . Pigtail catheter. LV to AO pullback pressures were then recorded. CORONARY ANGIOGRAPHY DOMINANCE: Left Dominant LEFT HEART ASSESSMENT Left Ventricular Ejection Fraction: by LV Gram 60 % Normal LV wall motion Normal Left Ventricular systolic function LVEDP: 10 mmHg Normal Left Ventricular End Diastolic Pressure LEFT MAIN: Angiographically normal LEFT ANTERIOR DESCENDING ARTERY: MID LAD: Non-obstructive CIRCUMFLEX ARTERY: PROX CIRC: Mild luminal irregularities less than 30% RAMUS: Angiographically normal RIGHT CORONARY ARTERY: Angiographically normal COMPLICATIONS No Complications PROCEDURE MEDICATIONS Oxygen: 2 L/min via nasal cannula SUMMARY OF HEMODYNAMIC DATA Time AIR REST ECG 07:42:13 AO 108/57 (76) SA 07:59:39 LV 109/-15, 11 08:05:11 LV 103/-13, 10 08:05:18 LVp 116/-17, 5 08:05:31 AOp 108/54 (73) 08:05:36 Signed By Jimmy Tran MD On 09/10/2019 08:20:56 Jimmy Tran MD
--- NOTE | 2019-09-10 11:48 | CASEMGMT ---
CARLEE SANCHEZ assessment: Face to Face with patient for initial transition planning/care coordination assessment. CARLEE SANCHEZ introduced self and role at [facility], pt voices understanding and consents to assessment at this time. Pt is sitting up in bed in no distress at this time. Pt is A/Ox4 at this time and answers all questions appropriately at this time. Care providers, pharmacy, and demographics verified at this time. PCP: [facility] Specialists: Pt states no specialists. Preferred Pharmacy: [facility] Insurance: [employer] A/B, [employer] Prescription Benefit: [employer] Living Will/HPOA: Pt states does not have LW/HPOA and declines info at this time. LNOK: Radha Solis, daughter Living Arrangements: Pt states lives alone in home and states no concerns at home at this time. Pt is independent with ADL's. Transportation: Pt states drives self and states no transportation concerns at this time. DME/HHC: Pt states no current DME or need for any at this time. Pt states no hx of HHC or SNF in the past. Pt states no concerns with going home at time of discharge. Pt is retired. Pt states does not smoke or drink ETOH. Pt states no further concerns/needs at this time. CM to follow for any further discharge planning/needs. Advised pt to ask for CM if any further questions/concerns/needs arise, voices understanding. Pt Goal: Home Plan: [place] CARLEE SANCHEZ
--- NOTE | 2019-09-10 12:49 | NURSING ---
Bedrest post cath complete. R groin site c/d/i. Patient ambulated halls without issue.
--- NOTE | 2019-09-10 13:21 | PCM.DC ---
- Discharge Diagnoses Current Active Problems: Current Active and Chronic Problems (Last Updated 09/08/19 @ 15:00 by Phillip Anderson DO) Chest pain (Acute) You will use the following diet at home:: Cardiac Your food should be the consistency of: Regular Your liquids should be the consistency of: Regular/Thin Discharge Activity: Return to Normal Activity Weight Bearing Status: Weight bearing as tolerated Call your doctor if you observe: Shortness of breath, Dizziness, Fainting spells, Swelling in the ankles, Chest pain Instructions: Warning Signs of a Heart Attack, Taking Long-Acting Nitroglycerin, What Is Angina? Allergies/Adverse Reactions: Allergies No Known Allergies Allergy (Verified 09/08/19 11:46) Medications to take at Discharge Warfarin [Coumadin] 5 mg PO SUMOWETHFRSA 06/06/17 Tamsulosin HCl [Flomax] 0.4 mg PO DAILY@1730 #30 capsule 06/25/17 Warfarin [Coumadin] 7.5 mg PO TU 05/07/19 Aspirin E.C. [Ecotrin] 81 mg PO DAILY@0800 #30 tab 09/10/19 Atorvastatin Calcium [Lipitor] 40 mg PO QHS #30 tab 09/10/19 Isosorbide Mononitrate [Imdur] 30 mg PO DAILY #30 tab 09/10/19 The following prescriptions were given: Aspirin E.C. [Ecotrin] 81 mg PO DAILY@0800 #30 tab Transmission Status: Received by [facility] [employer] Isosorbide Mononitrate [Imdur] 30 mg PO DAILY #30 tab Transmission Status: Received by [employer]) Atorvastatin Calcium [Lipitor] 40 mg PO QHS #30 tab Transmission Status: Received by [facility] Primary Care Physician: Efrain Baca MD [Primary Care Provider] - Please follow up with your Primary Care Physician in: one week Test Results: Test results from this visit will be discussed in further detail at your follow-up appointment, if applicable. Please Follow Up With: Jimmy Tran MD When: 2-3 weeks Proposed Discharge Date: 09/10/19
--- NOTE | 2019-09-10 13:22 | PCM.DC.SUM ---
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 Electronically Signed: Willian Wright, at 12:20 EST Tel , Service support , Chest CTA 09/08/19 12:34 IMPRESSION: No pulmonary embolism or arterial dissection. No focal pulmonary consolidation. Electronically Signed: Nima Mcintosh, at 14:30 EST Tel , Service support , cardiology- Dr Tran Operations: None Procedures: 2-D Echocardiogram, Cardiac catheterization Summary of Care Provided: The patient is a 69 year old M with a past medical history as listed. He was admitted through the ED on 09/08/2019 with a 4-day history of left-sided chest pain which was constant and had no aggravating or relieving factors. He said is coming to the ED where EKG showed no acute ST changes. Initial troponin was 0.097. CT angiogram done was negative for any PE. He was admitted to manage for chest pain rule out ACS. Troponin trended up slightly to a peak of 0.108 and came down to 0.102. Chest x-ray showed no acute cardiopulmonary process, and EKG showed no acute ST changes. He was admitted and managed for chest pain to rule out ACS. INR was 2.5 on admission. Cardiology was consulted. He was started on high intensity statin. 2D echo done showed EF of 65% with stage I diastolic dysfunction and moderately enlarged left atrium. RVSP was estimated to be 32 mmHg. He had cardiac cath on 09/10/2019 which showed nonobstructive coronary arteries and preserved left ventricular systolic function. Per cardiology, plan was to discontinue Plavix and restart Coumadin and patient would benefit from a hypercoagulable work-up on outpatient basis. He was also continued on his aspirin and high intensity statin as well as Imdur. He is to follow-up with his primary care doctor and with cardiology. Patient seen and examined prior to discharge. He had just come back from cath and had no problems and felt well. Review of systems otherwise negative. Labs and vitals reviewed. Home medications reviewed and reconciled. o/e: Vital Signs Height 6 ft 2 in Weight: 280 lb 3.2 oz Weight in Pounds 280.2 lbs Pulse Ox 94 Temperature 98.0 F Pulse Rate 55 Respiratory Rate 16 Blood Pressure 118/69 Blood Pressure Position Semi-Fowlers [] General: Alert, Cooperative, No apparent distress HEENT: Atraumatic, Normocephalic Oral: Moist Mucosa, No Gingival or Mucosal Lesions/ Ulcerations Neck: No Nodes, Trachea Midline Lungs: Clear to auscultation, Normal air movement, No rhonchi, No wheeze, No rales Cardiovascular: Regular rate, Regular Rhythm, Normal S1, Normal S2, No murmurs Abdomen: Bowel Sounds Present, Soft, Non Tender, Non-Distended, No Hepato-splenomegaly Extremities: No edema, No Calf Tenderness Skin: No rashes, No breakdown Musculoskeletal: No Tenderness to Palpation of Joints or Extremities, No Muscle Wasting Neurological: Muscle tone normal, Psych/Mental Status: Normal Affect, Appropriate Plan as above. Patient Problems: Active and Suspected Problems (Last Updated 09/08/19 @ 15:00 by Phillip Anderson DO) Chest pain (Acute) - Physical Exam Vitals/I&O's: Vital Signs Temp Pulse Resp BP Pulse Ox 98.0 F 55 L 16 118/69 94 09/10/19 10:45 09/10/19 12:45 09/10/19 12:45 09/10/19 12:45 09/10/19 12:45 Oxygen Flow Rate (L/min) 2 Oxygen Delivery Method Room Air Weight: 280 lb 3.2 oz Body Mass Index (BMI) 35.9 Intake and Output for Last 24 Hours 09/08/19 09/09/19 09/10/19 23:59 23:59 23:59 Intake Total 490 / 490 2039 240 / 240 Balance 490 / 490 2039 240 / 240 Laboratory Results 09/10/19 04:55: PT 19.6 H, INR 1.7 09/10/19 08:12: PT Ratio Pending, Thrombin Time Pending, Thrombin Time Mix Pending, Lupus Anticoag aPTT Pending, Protein C Antigen Pending, Free Protein S Pending, Total Protein S Pending, Func Antithrombin III Pending, Factor V Leiden Mutat Pending 09/10/19 08:12: Antithrombin III Ag Pending, Func Antithrombin III Pending, Factor V Leiden Mutat Cancelled, Factor V Leiden Comment Cancelled 09/10/19 08:12: PT Diluted Cancelled, PT Ratio Cancelled, PTT Patient Post-Incubat Cancelled, Thrombin Time Cancelled, Thrombin Time Mix Cancelled, Lupus Anticoag aPTT Cancelled, LA PTT Mix/Correction Cancelled, Hexagonal Phospholipid Cancelled, APC Resistance Pending, Functional Protein S Pending, Free Protein S Pending, Total Protein S Pending Current Medications Acetaminophen (Tylenol) 650 mg PO Q6H PRN PRN PRN Reason: Pain Score 1-3/Temp > 100.7 F Last Admin: 09/09/19 15:10 Dose: 650 mg Documented by: Aspirin (Ecotrin) 81 mg PO DAILY@0800 [facility] Last Admin: 09/10/19 05:56 Dose: 81 mg Documented by: Atorvastatin Calcium (Lipitor) 40 mg PO QHS [facility] Last Admin: 09/09/19 22:00 Dose: 40 mg Documented by: Heparin Sodium (Beef Lung) (Heparin 500 Unit/5 Ml (100/Ml)) 500 unit IV UD PRN PRN Reason: HEPARIN FLUSH Sodium Chloride () 1,000 mls @ 15 mls/hr IV .Q48H [facility] Last Infusion: 09/10/19 06:43 Dose: 0 mls/hr Documented by: Isosorbide Mononitrate (Imdur) 30 mg PO DAILY [facility] Last Admin: 09/10/19 05:56 Dose: 30 mg Documented by: Labetalol HCl (Trandate) 5 mg IV X1 PRN PRN Reason: SBP > 160 prior to sheath pull Stop: 09/12/19 08:10 Melatonin (Melatonin) 3 mg PO QHS PRN PRN PRN Reason: INSOMNIA Ondansetron HCl (Zofran) 4 mg IV Q8H PRN PRN PRN Reason: NAUSEA/VOMITING Oxycodone HCl (Oxyir) 5 mg PO Q4H PRN PRN PRN Reason: Pain Score 4-5/10 Last Admin: 09/09/19 20:22 Dose: 5 mg Documented by: Oxycodone HCl (Oxyir) 10 mg PO Q4H PRN PRN PRN Reason: Pain Score 6-10/10 Sodium Chloride () 10 - 40 ml IV UD PRN PRN Reason: SALINE FLUSH Last Admin: 09/09/19 09:20 Dose: 10 ml Documented by: Tamsulosin HCl (Flomax) 0.4 mg PO DAILY@1730 [facility] Last Admin: 09/09/19 17:39 Dose: 0.4 mg Documented by: Discharge Diet: Low fat/ Low Cholesterol Discharge Activity: Return to Normal Activity Weight Bearing Status: Weight bearing as tolerated Call your doctor if you observe: Shortness of breath, Dizziness, Fainting spells, Swelling in the ankles, Chest pain Home Medications: Medications to take at Discharge Warfarin [Coumadin] 5 mg PO SUMOWETHFRSA 06/06/17 Tamsulosin HCl [Flomax] 0.4 mg PO DAILY@1730 #30 capsule 06/25/17 Warfarin [Coumadin] 7.5 mg PO TU 05/07/19 Aspirin E.C. [Ecotrin] 81 mg PO DAILY@0800 #30 tab 09/10/19 Atorvastatin Calcium [Lipitor] 40 mg PO QHS #30 tab 09/10/19 Isosorbide Mononitrate [Imdur] 30 mg PO DAILY #30 tab 09/10/19 Following Prescrptions Were Given to Patient: Aspirin E.C. [Ecotrin] 81 mg PO DAILY@0800 #30 tab Transmission Status: Received by [employer] Isosorbide Mononitrate [Imdur] 30 mg PO DAILY #30 tab Transmission Status: Received by [employer] Atorvastatin Calcium [Lipitor] 40 mg PO QHS #30 tab Transmission Status: Received by [employer] Primary Care Physician: Efrain Baca MD [Primary Care Provider] - Please follow up with your Primary Care Physician in: one week Please Follow Up With: Jimmy Tran MD When: 2-3 weeks Patient Instructions: What Is Angina?, Taking Long-Acting Nitroglycerin, Warning Signs of a Heart Attack Disposition: Home Minutes spent on discharge:: 35 Patient Condition:: Stable Medical Necessity - Tobacco Use Smoking Status: Never smoker Tobacco Use: Non-smoker Meaningful Use Info Meaningful Use Diagnoses (Choose all that apply): None applicable Code Visit Inpatient E&M: 61808 Disch Hosp
[2019-09-12 13:02] LABS: Activated Protein C Resistance 2.6 ratio (2.2-3.5); Protein S, Free 57 % (57-157); Protein S, Funtional 51 % (63-140); Protein S, Total 49 % (60-150)
[2019-09-12 13:03] LABS: Anti-Thrombin 3 AG, Immunol 69 % (72-124); Antithrombin 3 Function 76 % (75-135)
[2019-09-15 03:06] LABS: Antithrombin 3 Function 74 % (75-135); Dilute Prothrombin Time (dPT) 58.7 sec (0.0-55.0); Dilute Russell Viper Venom 45.8 sec (0.0-47.0); PTT-LA 35.6 sec (0.0-51.9); Thrombin Time 19.1 sec (0.0-23.0); dPT Confirm Ratio 0.91 Ratio (0.00-1.40)
[2019-09-15 12:08] LABS: Interpretation Comment: (.); Protein C Antigen 69 % (60-150); Protein S, Free 58 % (57-157); Protein S, Total 48 % (60-150)
== END 2019-09-10 14:30 | disposition home or self-care (01) | DRG 287 ==
LOC: ED 12:05 → PCU 09-09 06:40
PROVIDERS: Internal Medicine Cardiovascular Disease; Emergency Provider Emergency Medicine; Visit Provider Student in an Organized Health Care Education/Training Program
DX: I20.9 Angina pectoris, unspecified (principal); E78.5 Hyperlipidemia, unspecified; N40.0 Benign prostatic hyperplasia without lower urinary tract symptoms; Z86.718 Personal history of other venous thrombosis and embolism; Z86.711 Personal history of pulmonary embolism; Z79.01 Long term (current) use of anticoagulants; Z79.82 Long term (current) use of aspirin; Z79.899 Other long term (current) drug therapy; Z82.49 Family history of ischemic heart disease and other diseases of the circulatory system; Z23 Encounter for immunization
CPT/HCPCS: 36415; 71045; 71275; 80048; 80061; 81241; 84484; 85025; 85300; 85301; 85302; 85305; 85306; 85307; 85379; 85610; 85652; 86141; 93005; 93306; 93458; 99285; G0008; J7030; Q9957; Q9967; 90686; A4216; C1769; C1894; C8929

== ENCOUNTER → 2019-11-03 12:48 | Outpatient (CLI) | payer MEDICARE, OTHER, SELFPAY ==
[2019-09-24 13:54] VITALS: BMI 35.6
[2019-11-03 13:59] LABS: AST(SGOT) 28 U/L (15-37); Alanine Aminotransfer ALT/SGPT 33 U/L (16-61); Albumin, Serum 3.6 g/dL (3.2-5.0); Alkaline Phosphatase 99 U/L (45-117); Bilirubin, Direct 0.18 mg/dL (0.00-0.30); Cholesterol 149 mg/dL (200); High Density Lipoprotein 54 mg/dL; Protein, Total 7.6 g/dL (6.4-8.2); Triglycerides 174 mg/dL; Very Low Density Lipoprotein 35 mg/dL (5-40)
== END ==
PROVIDERS: Referring Provider Internal Medicine Cardiovascular Disease; Visit Provider Internal Medicine Cardiovascular Disease
DX: E78.00 Pure hypercholesterolemia, unspecified (principal)
CPT/HCPCS: 36415; 80061; 80076

== ENCOUNTER → 2020-05-23 08:22 | Outpatient (CLI) | payer MEDICARE, OTHER, SELFPAY ==
[2020-05-04 08:53] VITALS: BMI 35.2
[2020-05-23 09:59] LABS: AST(SGOT) 28 U/L (15-37); Alanine Aminotransfer ALT/SGPT 34 U/L (16-61); Albumin, Serum 3.5 g/dL (3.2-5.0); Alkaline Phosphatase 105 U/L (45-117); Bilirubin, Direct 0.18 mg/dL (0.00-0.30); Cholesterol 144 mg/dL (200); High Density Lipoprotein 57 mg/dL; Protein, Total 7.5 g/dL (6.4-8.2); Triglycerides 100 mg/dL; Very Low Density Lipoprotein 20 mg/dL (5-40)
== END ==
PROVIDERS: Referring Provider Internal Medicine Cardiovascular Disease; Visit Provider Internal Medicine Cardiovascular Disease
DX: E78.00 Pure hypercholesterolemia, unspecified (principal)
CPT/HCPCS: 36415; 80061; 80076

== ENCOUNTER 2020-12-19 16:27 | Outpatient (RCR) | payer MEDICARE, OTHER, SELFPAY ==
[2020-11-07 09:45] VITALS: BMI 36.3
[2020-12-19] MEDS: COVID-19 VACC, MRNA(PFIZER)/PF 30 MCG/0.3 ML SYRINGE IM (18:24)
[2021-01-09] MEDS: COVID-19 VACC, MRNA(PFIZER)/PF 30 MCG/0.3 ML SYRINGE IM (17:56)
== END 2021-03-20 23:59 ==
LOC: IMMUN 16:27
PROVIDERS: PCP Nurse Practitioner Family; Visit Provider Family Medicine
DX: Z23 Encounter for immunization (principal)
CPT/HCPCS: 0001A; 0002A; 91300

== ENCOUNTER → 2023-09-23 | Outpatient (CLI) | payer MEDICARE, OTHER, SELFPAY ==
[2023-09-23 10:09] LABS: Absolute Lymphocyte Count 1.46 X10^3/uL (0.83-4.51); Absolute Neutrophil Count 4.7 X10^3/uL (2.0-7.7); Basophil# 0.07 X10^3/uL; Eosinophils% 4.2 % (0-5); Hematocrit 48.1 % (40-54); Hemoglobin 15.5 g/dL (13.0-16.5); Lymphocyte # 1.46 X10^3/ul (0.83-4.51); Lymphocyte % 20.7 % (19-41); Mean Corp Hgb Conc 32.2 g/dL (32-36); Mean Corpuscular Hgb 28.3 pg (27.0-32.0); Mean Corpuscular Volume 87.9 fL (80-94); Monocyte# 0.56 X10^3/uL; Monocyte% 7.9 % (0-10); NRBC Flagged by Analyzer 0 % (0-5); Neutrophil # 4.66 X10^3/uL (2.7-7.7); Neutrophil % 65.9 % (47-70); Platelet Count 197 K/mm3 (150-450); RBC Distribution Width CV 12.9 % (11.6-14.6); RBC Distribution Width SD 41.8 fl (35.1-43.9); Red Blood Count 5.47 M/mm3 (4.6-6.2); White Blood Count 7.1 K/mm3 (4.4-11.0)
[2023-09-23 10:47] LABS: Cholesterol 155 mg/dL (200); High Density Lipoprotein 57 mg/dL; PSA,Total- Diagnostic 0.51 ng/mL (0.0-4.0); Thyroid Stim Hormone (TSH) 4.28 uIU/mL (0.358-3.74); Triglycerides 141 mg/dL; Very Low Density Lipoprotein 28 mg/dL (5-40)
== END | disposition home or self-care (01) ==
LOC: MTLAB 08:03
PROVIDERS: PCP Family Medicine; Referring Provider Family Medicine; Visit Provider Family Medicine
DX: I25.10 Atherosclerotic heart disease of native coronary artery without angina pectoris (principal); N40.0 Benign prostatic hyperplasia without lower urinary tract symptoms; E78.5 Hyperlipidemia, unspecified
CPT/HCPCS: 36415; 80061; 84153; 84443; 85025; 85610

== ENCOUNTER 2023-11-03 11:03 | Outpatient (RCR) | payer MEDICARE, OTHER, SELFPAY ==
[2023-11-03 14:01] LABS: International Normalized Ratio 2.6; Prothrombin Time (Protime)PT. 27.7 SECONDS (11.7-14.9)
== END 2023-11-03 18:00 | disposition home or self-care (01) ==
LOC: MTLAB 11:03
PROVIDERS: PCP Family Medicine; Referring Provider Family Medicine; Visit Provider Family Medicine
DX: I25.10 Atherosclerotic heart disease of native coronary artery without angina pectoris (principal)
CPT/HCPCS: 36415; 85610

== ENCOUNTER → 2023-12-17 | Outpatient (CLI) | payer MEDICARE, OTHER, SELFPAY ==
--- OUTSIDE RECORDS SUMMARY | 2023-12-17 09:33 | XMS RPT_ITS | CCD ---
Author Name Unknown Address [address] [place] [address] [address] [place] [address] Organization [facility] Care Team Providers Care Director Of Institutional Sales Name Role Phone Harman Marshall CNP Primary Care Provider GENNA LINDQUIST II Attending UnavailHARMAN Hoffman Primary Care Unavailable Medications Current Medications Medication Drug Class(es) Dates Sig (Normalized) Sig (Original) phenylephrine hydrochloride 25 mg/ml ophthalmic solution (1 source) alpha-1 Adrenergic Agonist Start: 01-09-2023 End: 01-09-2023 PHENYLephrine 2.5 % 1 Drop (AK-DILATE, HORTENCIA-SYNEPHRINE) tropicamide 10 mg/ml ophthalmic solution (2 sources) Anticholinergic Start: 01-09-2023 End: 01-09-2023 tropicamide 1 % 1 Drop (MYDRIACYL) Completed/Discontinued Medications Medication Drug Class(es) Dates Sig (Normalized) Sig (Original) aspirin 81 mg delayed release oral tablet (2 sources) Platelet Aggregation Inhibitor, Nonsteroidal Anti-inflammatory Drug take 1 tablet by mouth once daily aspirin, enteric coated (ASPIRIN, ENTERIC COATED) 81 mg EC tablet Take 81 mg by mouth once daily. 0 Active Problems Active Problems Problem Classification Problem Date Documented Da te Episodic/Chronic Blindness and vision defects (8 sources) Bilateral regular astigmatism; Translations: [Regular astigmatism, bilateral] Onset: 10-01-2018 Episodic Cataract (4 sources) Bilateral senile combined form cataracts of eyes; Translations: [Combined forms of age-related cataract, bilateral] Onset: 10-01-2018 Chronic Gastrointestinal hemorrhage (2 sources) Hemorrhage of digestive system; Translations: [Chronic or unspecified gastrojejunal ulcer with hemorrhage] 05-18-2014 Chronic Glaucoma (4 sources) Suspected bilateral glaucoma; Translations: [Preglaucoma, unspecified, bilateral] Onset: 10-01-2018 Chronic Other and unspecified benign neoplasm (2 sources) Benign neoplasm of skin of right upper eyelid; Translations: [Other benign neoplasm of skin of right upper eyelid, including canthus] Episodic Other and unspecified benign neoplasm (2 sources) Benign neoplasm of skin of left upper eyelid; Translations: [Other benign neoplasm of skin of left upper eyelid, including canthus] Episodic Retinal detachments; defects; vascular occlusion; and retinopathy (4 sources) Retinal dystrophy; 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] Onset: 10-01-2018 Chronic Past or Other Problems Problem Classification Problem Date Documented Da te Episodic/Chronic Other and unspecified benign neoplasm (2 sources) Benign tumor of eyelid; Translations: [Other benign neoplasm of skin of unspecified eyelid, including canthus] Onset: 10-01-2018 10-01-2018 Episodic Results Test Name Value Interpretation Reference Range Facil ity Encounters Encounter Date Encounter Type Care Provider Facility Start: 01-09-2023 End: 01-09-2023 ambulatory GENNA LINDQUIST II Facility:[facility] Start: 01-09-2023 End: 01-09-2023 Patient encounter procedure Genna Lindquist OD Work Phone: Optometry Procedures Date Procedure Procedure Detail Performing Clinician Start: 01-09-2023 End: 01-09-2023 Visual field xm uni/bi w/interp extended exam Genna Lindquist OD Work Phone: Plan of Treatment Date Care Activity Detail Author Start: 12-22-2023 OCT OPTIC NERVE CIRR US OU (BOTH EYES) OCT OPTIC NERVE CIRRUS OU (BOTH EYES) OPHT Imaging Routine Glaucoma suspect of both eyes Expected: 12/22/2023 [facility] Work Phone: Payers Date Payer Category Payer Unknown [id number] 2017 Unknown [employer] [id number] 2017-Present [phone] [address] [address] [place] [address] Indemnity [id number] 2017 Unknown [employer] [id number] 2017-Present [phone] [address] [address] [place] [address] Indemnity [id number] 2017 Medicare [id number] 2017 Medicare MEDICARE MEDICAR E A AND B [id number] 2017-Present [phone] [place] [address] Medicare [id number] 2017 Medicare MEDICARE MEDICAR E A AND B [id number] 2017-Present [phone] [place] [address] Medicare [id number] 1950 Unknown [id number] Social History Date Type Detail Facility Start: 05-18-2014 End: 09-02-2016 Tobacco smoking status NHIS Never smoked tobacco [facility] Work Phone: Start: 05-18-2014 End: 09-02-2016 Tobacco use and exposure Smokeless tobacco non-user [facility] Work Phone: Start: 01-01-2022 End: 01-09-2023 Alcohol intake Current non-drinker of alcohol (finding) [facility] Start: 1950 Sex Assigned At Not on file [facility] Start: 12-22-2021 End: 01-01-2022 Exposure to SARS-CoV-2 (event) Not sure [facility] Progress note 01-09-2023 Note Date & Type Note Facility 01-09-2023 Note HNO ID: [id number] Author: Genna Lindquist II, ROSIE Service: ? 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 Continue observation in one year. No treatment indicated at this time. Discussed need for continued close observation to minimize chance of future vision loss. H25.813 Combined forms of age-related cataract, bilateral Comment: Progression R>L. Patient will tolerate for now. Monitor yearly or sooner if needed. 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 Monitor. D23.111 Benign neoplasm of skin of right upper eyelid D23.121 Benign neoplasm of skin of left upper eyelid Comment: Stable both eyes. Monitor. H52.223 Regular astigmatism, bilateral H52.4 Presbyopia Comment: Small shift in glasses power right eye due to cataract but minimal improvement in acuity. Monitor for further changes. I have confirmed and edited as necessary the relevant ophthalmic history, ROS, and the neuro exam findings as obtained by others. I have seen and examined Adelfo Solis. I have discussed the case and the management of this patient's care with the Resident/Fellow, if applicable. I also have reviewed and agree with the assessment and plan as stated above and agree with all of its relevant components. 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 Continue observation in one year. No treatment indicated at this time. Discussed need for continued close observation to minimize chance of future vision loss. H25.813 Combined forms of age-related cataract, bilateral Comment: Progression R>L. Patient will tolerate for now. Monitor yearly or sooner if needed. 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 Monitor. D23.111 Benign neoplasm of skin of right upper eyelid D23.121 Benign neoplasm of skin of left upper eyelid Comment: Stable both eyes. Monitor. H52.223 Regular astigmatism, bilateral H52.4 Presbyopia Comment: Small shift in glasses power right eye due to cataract but minimal improvement in acuity. Monitor for further changes. I have confirmed and edited as necessary the relevant ophthalmic history, ROS, and the neuro exam findings as obtained by others. I have seen and examined Adelfo Solis. I have discussed the case and the management of this patient's care with the Resident/Fellow, if applicable. I also have reviewed and agree with the assessment and plan as stated above and agree with all of its relevant components. Genna Lindquist II, OD documented in this encounter [facility] History of Present illness Narrative 01-09-2023 Genna Lindquist II, OD - 01/09/2023 9:00 AM EDT Note Date & Type Note Facility 01-09-2023 History of Presen t illness Narrative Assessment and Plan H40.003 Glaucoma suspect of both eyes (primary encounter diagnosis) Comment: Glaucoma suspect both eyes due to optic nerve cupping and previously noted [employer] anomalies. Continue observation in one year. No treatment indicated at this time. Discussed need for continued close observation to minimize chance of future vision loss. H25.813 Combined forms of age-related cataract, bilateral Comment: Progression R>L. Patient will tolerate for now. Monitor yearly or sooner if needed. 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 Monitor. D23.111 Benign neoplasm of skin of right upper eyelid D23.121 Benign neoplasm of skin of left upper eyelid Comment: Stable both eyes. Monitor. H52.223 Regular astigmatism, bilateral H52.4 Presbyopia Comment: Small shift in glasses power right eye due to cataract but minimal improvement in acuity. Monitor for further changes. I have confirmed and edited as necessary the relevant ophthalmic history, ROS, and the neuro exam findings as obtained by others. I have seen and examined Adelfo Solis. I have discussed the case and the management of this patient's care with the Resident/Fellow, if applicable. I also have reviewed and agree with the assessment and plan as stated above and agree with all of its relevant components. Genna Lindquist II, OD documented in this encounter [facility] Instructions 01-01-2022 Patient Instructions Note Date & Type Note Facility 01-01-2022 Instructions Genna Lindquist II, OD - 01/01/2022 8:38 AM EDT Assessment and Plan H25.813 Combined forms of age-related cataract, bilateral (primary encounter diagnosis) Comment: R>L. Progressing both eyes. Patient tolerates for now. Monitor yearly. 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 Stable nerve appearance today. Repeat OCT NFA and threshold mason in one year. No treatment indicated at this time. Discussed need for continued close observation to minimize chance of future vision loss. 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 Monitor. D23.111 Benign neoplasm of skin of right upper eyelid D23.121 Benign neoplasm of skin of left upper eyelid Comment: Monitor skin tags for change. H52.223 Regular astigmatism, bilateral H52.4 Presbyopia Comment: Glasses power stable. I have confirmed and edited as necessary the relevant ophthalmic history, ROS, and the neuro exam findings as obtained by others. I have seen and examined Adelfo Solis. I have discussed the case and the management of this patient's care with the Resident/Fellow, if applicable. I also have reviewed and agree with the assessment and plan as stated above and agree with all of its relevant components. Genna Lindquist II, OD documented in this encounter [facility] History of Present illness Narrative 01-01-2022 Genna Lindquist II, OD - 01/01/2022 8:35 AM EDT Note Date & Type Note Facility 01-01-2022 History of Presen t illness Narrative Assessment and Plan H25.813 Combined forms of age-related cataract, bilateral (primary encounter diagnosis) Comment: R>L. Progressing both eyes. Patient tolerates for now. Monitor yearly. 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 Stable nerve appearance today. Repeat OCT NFA and threshold mason in one year. No treatment indicated at this time. Discussed need for continued close observation to minimize chance of future vision loss. 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 Monitor. D23.111 Benign neoplasm of skin of right upper eyelid D23.121 Benign neoplasm of skin of left upper eyelid Comment: Monitor skin tags for change. H52.223 Regular astigmatism, bilateral H52.4 Presbyopia Comment: Glasses power stable. I have confirmed and edited as necessary the relevant ophthalmic history, ROS, and the neuro exam findings as obtained by others. I have seen and examined Adelfo Solis. I have discussed the case and the management of this patient's care with the Resident/Fellow, if applicable. I also have reviewed and agree with the assessment and plan as stated above and agree with all of its relevant components. Genna Lindquist II, OD documented in this encounter [facility] Evaluation note Note Date & Type Note Facility documented in this encounter [facility] Evaluation note Note Date & Type Note Facility documented in this encounter [facility] Summary Purpose Family History No Family History Records FoundNo Family History Records FoundNo Family History Records Found Advance Directives No Advanced Directives Records FoundNo Advanced Directives Records FoundNo Advanced Directives Records Found Medications Administered Section Active Administered Medications - up to 3 most recent administrations Medication Order MAR Action Action Date Dose Rate Site tropicamide 0.5 % 1 Drop (MYDRIACYL) 1 Drop, BOTH EYES, DIRECTED, Starting on Fri01/01/22 at 0900, Until Fri01/01/22 at 2058, Administer for dilation Given 01/01/2022 9:00 AM EDT 1 Drop Active Administered Medications - up to 3 most recent administrations Medication Order MAR Action Action Date Dose Rate Site PHENYLephrine 2.5 % 1 Drop (AK-DILATE, HORTENCIA-SYNEPHRINE) 1 Drop, BOTH EYES, DIRECTED, Starting on Fri01/09/23 at 0930, Until Fri01/09/23 at 2128, Administer for dilation PROTECT FROM LIGHT Given 01/09/2023 9:30 AM EDT 1 Drop tropicamide 1 % 1 Drop (MYDRIACYL) 1 Drop, BOTH EYES, DIRECTED, Starting on Jacqueline 01/09/23 at 0930, Until Jacqueline 01/09/23 at 2129, Administer for dilation Given 01/09/2023 9:30 AM EDT 1 Drop Additional Source Comments (unrecognized sect ion and content) No Status Records FoundNo Status Records FoundNo Status Records Found INFORMATION SOURCE (unrecogn ized section and content) DATE CREATED AUTHOR AUTHOR'S ORGANIZ ATION 04/19/2019 [facility] DATE CREATED AUTHOR AUTHOR'S ORGANIZ ATION 01/14/2023 [facility] Source Comments (unrecognize d section and content) In the event this informatio n is protected by the Federal Confidentiality of Alcohol and Drug Abuse Patient Records regulations: The Federal rules restrict any use of the information to criminally investigate or prosecute any alcohol or drug abuse patient.[facility] the event this information is protected by the Federal Confidentiality of Alcohol and Drug Abuse Patient Records regulations: The Federal rules restrict any use of the information to criminally investigate or prosecute any alcohol or drug abuse patient.[facility] Reason for Visit (unrecogniz ed section and content) Reason Comments Cataract Evaluation Glaucoma Suspect Evaluation Care Teams (unrecognized sec tion and content) Director Of Institutional Sales Relationship Specialty Start Date End Date Harman Marshall, FLOOR INSPECTOR [address] [place] [address] PCP - General Family Medicine 12/12/20 FOR RECORDS PERTAINING TO PATIENTS WHO ARE OR HAVE BEEN ENROLLED IN A CHEMICAL DEPENDENCY/SUBSTANCEABUSE PROGRAM, SOME INFORMATION MAY BE OMITTED. This clinical summary was aggregated from multiple sources. Caution should be exercised in using it in the provision of clinical care. This summary normalizes information from multiple sources, and as a consequence, information in this document may materially change the coding, format and clinical context of patient data. In addition, data may be omitted in some cases. CLINICAL DECISIONS SHOULD BE BASED ON THE PRIMARY CLINICAL RECORDS. [facility]. provides no warranty or guarantee of the accuracy or completeness of information in this document.
[2023-12-17 10:36] LABS: Erythrocyte Sedimentation Rate 27 mm/hr (0-20)
[2023-12-17 10:42] LABS: Absolute Lymphocyte Count 1.47 X10^3/uL (0.83-4.51); Absolute Neutrophil Count 4.4 X10^3/uL (2.0-7.7); Basophil# 0.07 X10^3/uL; Eosinophil# 0.38 X10^3/uL; Eosinophils% 5.5 % (0-5); Hematocrit 45.7 % (40-54); Hemoglobin 15.2 g/dL (13.0-16.5); Lymphocyte # 1.47 X10^3/ul (0.83-4.51); Lymphocyte % 21.4 % (19-41); Mean Corp Hgb Conc 33.3 g/dL (32-36); Mean Corpuscular Hgb 29.3 pg (27.0-32.0); Mean Corpuscular Volume 88.1 fL (80-94); Mean Platelet Vol. 12.1 fl (6.2-12.0); Monocyte# 0.52 X10^3/uL; Monocyte% 7.6 % (0-10); NRBC Flagged by Analyzer 0 % (0-5); Neutrophil % 64.2 % (47-70); Platelet Count 221 K/mm3 (150-450); RBC Distribution Width SD 41.6 fl (35.1-43.9); Red Blood Count 5.19 M/mm3 (4.6-6.2); White Blood Count 6.9 K/mm3 (4.4-11.0)
[2023-12-17 11:20] LABS: International Normalized Ratio 3.2; Prothrombin Time (Protime)PT. 32.4 SECONDS (11.7-14.9)
[2023-12-17 11:21] LABS: CRP < 2.90 mg/L (0.0-3.0)
== END | disposition home or self-care (01) ==
LOC: MTLAB 09:14
PROVIDERS: PCP Family Medicine; Referring Provider Orthopaedic Surgery; Visit Provider Orthopaedic Surgery
DX: Z51.81 Encounter for therapeutic drug level monitoring (principal); T85.848A Pain due to other internal prosthetic devices, implants and grafts, initial encounter; M16.11 Unilateral primary osteoarthritis, right hip; Z96.641 Presence of right artificial hip joint
CPT/HCPCS: 36415; 85025; 85610; 85652; 86140

== ENCOUNTER → 2024-01-27 | Outpatient (CLI) | payer MEDICARE, OTHER, SELFPAY ==
[2024-01-27 15:22] LABS: International Normalized Ratio 2.8; Prothrombin Time (Protime)PT. 29.6 SECONDS (11.7-14.9)
== END | disposition home or self-care (01) ==
LOC: MFPLAB 13:32
PROVIDERS: PCP Family Medicine; Visit Provider Family Medicine
DX: Z51.81 Encounter for therapeutic drug level monitoring (principal)
CPT/HCPCS: 36415; 85610

== ENCOUNTER → 2024-02-24 | Outpatient (CLI) | payer MEDICARE, OTHER, SELFPAY ==
[2024-02-24 16:35] LABS: International Normalized Ratio 1.6; Prothrombin Time (Protime)PT. 18.8 SECONDS (11.7-14.9)
== END | disposition home or self-care (01) ==
LOC: MFPLAB 14:31
PROVIDERS: PCP Family Medicine; Visit Provider Family Medicine
DX: Z51.81 Encounter for therapeutic drug level monitoring (principal)
CPT/HCPCS: 36415; 85610

== ENCOUNTER → 2024-03-01 | Outpatient (CLI) | payer MEDICARE, OTHER, SELFPAY ==
[2024-03-01 12:46] LABS: International Normalized Ratio 2.2; Prothrombin Time (Protime)PT. 23.9 SECONDS (11.7-14.9)
== END | disposition home or self-care (01) ==
LOC: MFPLAB 10:33
PROVIDERS: PCP Family Medicine; Visit Provider Family Medicine
DX: Z51.81 Encounter for therapeutic drug level monitoring (principal)
CPT/HCPCS: 36415; 85610

== ENCOUNTER → 2024-04-09 | Outpatient (CLI) | payer MEDICARE, OTHER, SELFPAY ==
[2024-04-09 10:42] LABS: International Normalized Ratio 2.7; Prothrombin Time (Protime)PT. 28.7 SECONDS (11.7-14.9)
== END | disposition home or self-care (01) ==
LOC: MFPLAB 09:30
PROVIDERS: PCP Family Medicine; Visit Provider Family Medicine
DX: Z51.81 Encounter for therapeutic drug level monitoring (principal)
CPT/HCPCS: 36415; 85610

== ENCOUNTER → 2024-05-05 | Outpatient (CLI) | payer MEDICARE, OTHER, SELFPAY ==
[2024-05-05 12:19] LABS: International Normalized Ratio 3.1; Prothrombin Time (Protime)PT. 31.7 SECONDS (11.7-14.9)
== END | disposition home or self-care (01) ==
LOC: MFPLAB 10:04
PROVIDERS: PCP Family Medicine; Visit Provider Family Medicine
DX: I82.402 Acute embolism and thrombosis of unspecified deep veins of left lower extremity (principal)
CPT/HCPCS: 36415; 85610

== ENCOUNTER → 2024-05-21 | Outpatient (CLI) | payer MEDICARE, OTHER, SELFPAY ==
[2024-05-21 17:43] LABS: International Normalized Ratio 2.8; Prothrombin Time (Protime)PT. 29.6 SECONDS (11.7-14.9)
== END | disposition home or self-care (01) ==
LOC: MFPLAB 14:37
PROVIDERS: PCP Family Medicine; Visit Provider Family Medicine
DX: Z51.81 Encounter for therapeutic drug level monitoring (principal); Z79.01 Long term (current) use of anticoagulants
CPT/HCPCS: 36415; 85610

== ENCOUNTER → 2024-07-01 | Outpatient (CLI) | payer MEDICARE, OTHER, SELFPAY ==
[2024-07-01 10:27] LABS: International Normalized Ratio 2.6
== END | disposition home or self-care (01) ==
LOC: MFPLAB 08:28
PROVIDERS: PCP Family Medicine; Visit Provider Family Medicine
DX: Z51.81 Encounter for therapeutic drug level monitoring (principal)
CPT/HCPCS: 36415; 85610

== ENCOUNTER → 2024-07-26 | Outpatient (CLI) | payer MEDICARE, OTHER, SELFPAY | END | disposition home or self-care (01) | LOC: MFPLAB 09:52 | PROVIDERS: PCP Family Medicine; Visit Provider Family Medicine | DX: Z51.81 Encounter for therapeutic drug level monitoring (principal) | CPT/HCPCS: 36415; 85610 ==

== ENCOUNTER → 2024-08-09 | Outpatient (CLI) | payer MEDICARE, OTHER, SELFPAY ==
[2024-08-09 12:23] LABS: Basophil# 0.06 X10^3/uL; Basophil% 0.7 % (0-1); Eosinophil# 0.22 X10^3/uL; Eosinophils% 2.6 % (0-5); Hematocrit 42.2 % (40-54); Hemoglobin 13.4 g/dL (13.0-16.5); Lymphocyte % 16.8 % (19-41); Mean Corp Hgb Conc 31.8 g/dL (32-36); Mean Corpuscular Hgb 27.7 pg (27.0-32.0); Mean Corpuscular Volume 87.2 fL (80-94); Mean Platelet Vol. 12.6 fl (6.2-12.0); Monocyte% 7.2 % (0-10); NRBC Flagged by Analyzer 0 % (0-5); Neutrophil # 6.02 X10^3/uL (2.7-7.7); Neutrophil % 72.3 % (47-70); Platelet Count 227 K/mm3 (150-450); RBC Distribution Width SD 45.1 fl (35.1-43.9); Red Blood Count 4.84 M/mm3 (4.6-6.2); White Blood Count 8.3 K/mm3 (4.4-11.0)
[2024-08-09 12:37] LABS: ALB/GLOB Ratio 0.7 RATIO (0.9-2.4); AST(SGOT) 27 U/L (15-37); Alanine Aminotransfer ALT/SGPT 25 U/L (16-61); Albumin, Serum 3.2 g/dL (3.2-5.0); Alkaline Phosphatase 125 U/L (45-117); Anion Gap 5 (5-15); BUN 21 mg/dL (7-18); BUN/Creat Ratio 26.9 RATIO (10-20); Calcium,Total 8.7 mg/dL (8.5-10.1); Chloride 109 mmol/L (98-107); Cholesterol 138 mg/dL (200); Creatinine, Serum 0.78 mg/dL (0.70-1.30); EST Glomerular Filtration Rate 104 mL/min (>60); Est Glom Filt Rate - Afr Amer 125 mL/min (>60); Globulin 4.3 g/dL (2.2-4.2); Glucose 88 mg/dL (74-106); High Density Lipoprotein 59 mg/dL; PSA,Total - Annual Screen 0.45 ng/mL (0.00-4.00); Potassium 4.1 mmol/L (3.5-5.1); Protein, Total 7.5 g/dL (6.4-8.2); Sodium Level 138 mmol/L (136-145); Triglycerides 112 mg/dL; Very Low Density Lipoprotein 22 mg/dL (5-40)
== END | disposition home or self-care (01) ==
LOC: MFPLAB 09:17
PROVIDERS: PCP Family Medicine; Referring Provider Family Medicine; Visit Provider Family Medicine
DX: I25.10 Atherosclerotic heart disease of native coronary artery without angina pectoris (principal); E03.8 Other specified hypothyroidism; N40.0 Benign prostatic hyperplasia without lower urinary tract symptoms; Z12.5 Encounter for screening for malignant neoplasm of prostate
CPT/HCPCS: 36415; 80053; 80061; 84153; 84443; 85025; G0103

== ENCOUNTER 2024-08-20 09:52 | Outpatient (RCR) | payer MEDICARE, OTHER, SELFPAY ==
[2024-08-20 12:46] LABS: International Normalized Ratio 2.7; Prothrombin Time (Protime)PT. 28.6 SECONDS (11.7-14.9)
== END 2024-09-11 18:00 | disposition home or self-care (01) ==
LOC: MTLAB 09:52
PROVIDERS: PCP Family Medicine; Referring Provider Family Medicine; Visit Provider Family Medicine
DX: Z51.81 Encounter for therapeutic drug level monitoring (principal)
CPT/HCPCS: 36415; 85610

== ENCOUNTER → 2024-09-24 | Outpatient (CLI) | payer MEDICARE, OTHER, SELFPAY ==
[2024-09-24 12:15] LABS: International Normalized Ratio 2.1
== END | disposition home or self-care (01) ==
LOC: MFPLAB 10:50
PROVIDERS: PCP Family Medicine; Referring Provider Family Medicine; Visit Provider Family Medicine
DX: Z51.81 Encounter for therapeutic drug level monitoring (principal); Z79.01 Long term (current) use of anticoagulants
CPT/HCPCS: 36415; 85610

== ENCOUNTER → 2024-10-25 | Outpatient (CLI) | payer MEDICARE, OTHER, SELFPAY ==
[2024-10-25 18:22] LABS: Prothrombin Time (Protime)PT. 23.4 SECONDS (11.7-14.9)
== END | disposition home or self-care (01) ==
LOC: MFPLAB 14:55
PROVIDERS: PCP Family Medicine; Referring Provider Family Medicine; Visit Provider Family Medicine
DX: Z51.81 Encounter for therapeutic drug level monitoring (principal); Z79.01 Long term (current) use of anticoagulants
CPT/HCPCS: 36415; 85610

== ENCOUNTER → 2024-11-23 | Outpatient (CLI) | payer MEDICARE, OTHER, SELFPAY ==
[2024-11-23 15:36] LABS: International Normalized Ratio 2.2; Prothrombin Time (Protime)PT. 24.9 SECONDS (11.7-14.9)
== END | disposition home or self-care (01) ==
LOC: MFPLAB 11:17
PROVIDERS: PCP Family Medicine; Referring Provider Family Medicine; Visit Provider Family Medicine
DX: Z51.81 Encounter for therapeutic drug level monitoring (principal)
CPT/HCPCS: 36415; 85610

== ENCOUNTER → 2025-01-20 | Outpatient (CLI) | payer MEDICARE, OTHER, SELFPAY ==
[2025-01-20 11:00] LABS: International Normalized Ratio 2.2; Prothrombin Time (Protime)PT. 24.7 SECONDS (11.7-14.9)
== END | disposition home or self-care (01) ==
PROVIDERS: PCP Family Medicine; Referring Provider Family Medicine; Visit Provider Family Medicine
DX: Z51.81 Encounter for therapeutic drug level monitoring (principal); Z79.01 Long term (current) use of anticoagulants
CPT/HCPCS: 36415; 85610

== ENCOUNTER → 2025-02-18 | Outpatient (CLI) | payer MEDICARE, OTHER, SELFPAY ==
[2025-02-18 16:22] LABS: Prothrombin Time (Protime)PT. 23.1 SECONDS (11.7-14.9)
== END | disposition home or self-care (01) ==
LOC: MFPLAB 11:06
PROVIDERS: PCP Family Medicine; Referring Provider Family Medicine; Visit Provider Family Medicine
DX: Z79.01 Long term (current) use of anticoagulants (principal); Z51.81 Encounter for therapeutic drug level monitoring
CPT/HCPCS: 36415; 85610

== ENCOUNTER 2025-04-26 09:43 | Outpatient (RCR) | payer MEDICARE, OTHER, SELFPAY ==
[2025-04-26 12:18] LABS: Prothrombin Time (Protime)PT. 25.6 SECONDS (11.7-14.9)
== END 2025-05-12 23:59 ==
LOC: MFPLAB 09:43
PROVIDERS: PCP Family Medicine; Visit Provider Family Medicine
DX: Z51.81 Encounter for therapeutic drug level monitoring (principal)
CPT/HCPCS: 36415; 85610

== ENCOUNTER 2025-06-30 10:16 | Outpatient (RCR) | payer MEDICARE, OTHER, SELFPAY ==
[2025-06-30 12:40] LABS: Prothrombin Time (Protime)PT. 24.6 SECONDS (11.7-14.9)
== END 2025-07-12 23:59 ==
LOC: MFPLAB 10:16
PROVIDERS: PCP Family Medicine; Visit Provider Family Medicine
DX: Z51.81 Encounter for therapeutic drug level monitoring (principal)
CPT/HCPCS: 36415; 85610

== ENCOUNTER → 2025-08-16 | Outpatient (CLI) | payer MEDICARE, OTHER, SELFPAY ==
[2025-08-16 09:50] LABS: Hematocrit 43.8 % (40-54); Hemoglobin 14.8 g/dL (13.0-16.5); Mean Corp Hgb Conc 33.8 g/dL (32-36); Mean Corpuscular Volume 88.0 fL (80-94); Mean Platelet Vol. 12.2 fl (6.2-12.0); Platelet Count 222 K/mm3 (150-450); RBC Distribution Width CV 12.8 % (11.6-14.6); RBC Distribution Width SD 41.0 fl (35.1-43.9); Red Blood Count 4.98 M/mm3 (4.6-6.2); White Blood Count 7.0 K/mm3 (4.4-11.0)
[2025-08-16 10:53] LABS: Cholesterol 154 mg/dL (<=200); Low Density Lipoprotein Calc. 81 mg/dL; PSA,Total - Annual Screen 0.46 ng/mL (0.02-4.00); Triglycerides 127 mg/dL; Very Low Density Lipoprotein 25 mg/dL (5-40); Vitamin D,25 Hydroxy 23.1 ng/mL (30-100); cholesterol:hdl ratio screen 3.07
== END | disposition home or self-care (01) ==
LOC: MFPLAB 08:46
PROVIDERS: PCP Family Medicine; Visit Provider Family Medicine
DX: I25.10 Atherosclerotic heart disease of native coronary artery without angina pectoris (principal); I50.30 Unspecified diastolic (congestive) heart failure; E03.8 Other specified hypothyroidism; Z12.5 Encounter for screening for malignant neoplasm of prostate
CPT/HCPCS: 36415; 80061; 82306; 84153; 84443; 85027; G0103

== ENCOUNTER 2025-09-27 11:05 | Outpatient (RCR) | payer MEDICARE, OTHER, SELFPAY ==
[2025-09-27 15:26] LABS: Prothrombin Time (Protime)PT. 25.7 SECONDS (11.7-14.9)
== END 2025-09-27 18:00 | disposition home or self-care (01) ==
LOC: MTLAB 11:05
PROVIDERS: PCP Family Medicine; Referring Provider Family Medicine; Visit Provider Family Medicine
DX: I82.402 Acute embolism and thrombosis of unspecified deep veins of left lower extremity (principal)
CPT/HCPCS: 36415; 85610